=== PATIENT | male | born 1945 | race Two or more races ===

== ENCOUNTER 2016-11-16 16:15 | Emergency (ER) | payer MEDICARE, OTHER ==
[~2016-11-16] VITALS: Ht 157.5 cm; Wt 72.6 kg
[~2016-11-16 16:15] MED LIST: AMOXICILLIN125 MG ORAL; ATENOLOL-CHLOR1 EAC2 ORAL; ATENOLOL25 MG ORAL; Aspirin ORAL; CALCIUM 500+VI1 EACH PO; CELEXA20 MG PO; CLOTRIMAZOLE-BE15 GM TP; COREG3.125 MG ORAL; DAKLINZA60 MG PO; DIPHENOXYLATE-1 EACH PO; FERROUS SULFAT325 MG ORAL; FLOMAX0.4 MG ORAL; FOLIC ACID1 MG ORAL; HEPARIN SO5000 UNIT2 SUBQ; IBUPROFEN200 MG ORAL; KLONOPIN0.5 MG ORAL; MYLANTA30 M1 PO; NORCO 5-325 TA1 EACH ORAL; NORCO 5-325 TA1 EACH PO; OMEPRAZOLE40 M1 ORAL; ONDANSETRON4 MG/2 M2 ORAL; POTASSIUM99 M3 PO; PROTONIX40 MG ORAL; ROBITUSSIN DM5 ML PO; SOVALDI400 MG PO; TENORMIN25 MG ORAL; THIAMINE HCL100 MG ORAL; TRAZODONE HCL150 MG ORAL; TRAZODONE HCL50 MG ORAL; TYLENOL325 MG ORAL; VITAMIN B COMP1 EAC2 ORAL; ZOFRAN4 M1 ORAL; ZOLPIDEM TARTRAT5 MG ORAL; [UNRECOGNIZED DRUG - OTHER]; diuretic PO
[2016-11-16 16:28] VITALS: BP 115/81
[2016-11-16] MEDS ORDERED: Lidocaine 1% 10mg/ml/Epi 0.005mg/ml 30ml vial INJ ONE (16:45)
--- NOTE | 2016-11-16 17:28 | Emergency Room Report ---
History of Present Illness General Chief Complaint: Skin Rash/Abscess Present Illness HPI 71-year-old male presents emergency department complaining of pain, swelling and erythema to the left buttocks x5 days. Patient denies nausea, vomiting, fevers or chills patient states he has been attempting hot sitz baths without relief. he reports he history of an abscessed on the outer right thigh approximately one year ago, which required incision and drainage, patient believes that this is the case today. Denies CP, Palpitations, LOC, AMS, dizziness, Changes in Vision, Sensation, paresthesias, or a sudden severe headache. (Daisy Munguia) Allergies: Coded Allergies: No Known Allergies (Unverified , 02/16/13) Patient History Past Medical History: see triage record Past Surgical History: none Pertinent Family History: none Reviewed Nursing Documentation: PMH: Agreed, PSxH: Agreed (Daisy Munguia) Nursing Documentation-PMH Hx Cardiac Problems: Yes Hx Hypertension: Yes Hx Pacemaker: No Hx Asthma: No Hx COPD: No Hx Diabetes: Yes Hx Cancer: No Hx Gastrointestinal Problems: Yes Hx Dialysis: No Hx Neurological Problems: No Hx Cerebrovascular Accident: No Hx Transient Ischemic Attacks: No Hx Dementia: No Hx Alzheimer's Disease: No Hx Parkinson's Disease: No Hx Meningitis: No Hx Encephalitis: No Hx Seizures: No Hx Epilepsy: No Hx Multiple Sclerosis: No Hx Cerebral Palsy: No Hx Amyotrophic Lat Sclerosis: No Hx Guillian-Marenisco Syndrome: No Hx Paralysis: No Hx Peripheral Neuropathy: No Hx Spinal Cord Injury: No Hx Head Trauma: No Hx Traumatic Brain Injury: No Hx Memory Loss: No Hx Concentration Difficulty: No Hx Speech Problem: No Hx Tremors: No Hx Vertigo: No Hx Dizziness: Yes - right hear hearing loss Hx Syncope: Yes - pa Hx Headaches: No Hx Aphasia: No Hx Dysphasia: No Hx Numbness: No Hx Weakness: No Hx Fatigue: No Hx Neurologic Surgery: No Hx Brain Shunt: No (Daisy Munguia PKodiAKodi) Review of Systems All Other Systems: negative except mentioned in HPI (Daisy Munguia PJennifer) Physical Exam Vital Signs Date Time Temp Pulse Resp B/P Pulse Ox O2 Delivery O2 Flow Rate FiO2 11/16/16 16:21 97.3 100 20 109/71 97 Room Air Sp02 EP Interpretation: reviewed, normal General Appearance: no apparent distress, alert, GCS 15, non-toxic Head: normocephalic, atraumatic Eyes: bilateral eye PERRL, bilateral eye normal inspection ENT: hearing grossly normal, normal pharynx, no angioedema, normal voice Neck: full range of motion, supple/symm/no masses Respiratory: chest non-tender, lungs clear, normal breath sounds, speaking full sentences Cardiovascular #1: regular rate, rhythm, no edema Gastrointestinal: normal bowel sounds, non tender, soft, no guarding, no rebound Rectal: deferred Genitourinary: normal inspection, no CVA tenderness Musculoskeletal: back normal, gait/station normal, normal range of motion, non- tender Neurologic: alert, oriented x3, responsive, motor strength/tone normal, sensory intact, speech normal Psychiatric: judgement/insight normal, memory normal, mood/affect normal, no suicidal/homicidal ideation Skin: normal color, no rash, warm/dry, well hydrated, other - swelling , erythema, and induration to left lower buttock , increased temperature to palpation. Lymphatic: no adenopathy (Daisy Munguia) Procedures Incision and Drainage Incision and Drainage : Consent: Verbal Site: left lower buttock Blade Size: 11 I & D Procedure: betadine prep Wound Location: lower extremity - left buttock Wound's Depth, Shape: into muscle Wound Length (cm): 2 Wound Explored: contaminated - purulent d/c expressed Irrigated w/ Saline (ccs): 60 Anesthesia: Lidocaine w/ Epi Volume Anesthetic (ccs): 2 Splint Applied?: No Sling Applied?: No Patient Tolerated: Well Complications: None (Daisy Munguia) Medical Decision Making PA Attestation Dr. christie is my supervising Physician whom patient management has been discussed with. (Daisy MunguiaAKodi) Medicare Attestation The history of Caleb Chappell has been reviewed and management options for him have been examined and discussed by Rashad June. I have personally examined and interviewed the patient. (RASHAD JUNE M.D.) Diagnostic Impression: Primary Impression: Abscess ER Course Pt. presents to the ED c/o pain, swelling, and erythema of left lower buttock Ddx considered but are not limited to cellulitis, abscess, cystic acne, necrotizing fasciitis, insect bite. Vital signs: are WNL, pt. is afebrile H&PE are most consistent with ORDERS: none required at this time, the diagnosis is clinical ED INTERVENTIONS: -I & D. - wound dressing applied. DISCHARGE: At this time pt. is stable for d/c to home. Will provide printed patient care instructions, and any necessary prescriptions. Care plan and follow up instructions have been discussed with the patient prior to discharge. (Daisy Munguia) Last Vital Signs Date Time Temp Pulse Resp B/P Pulse Ox O2 Delivery O2 Flow Rate FiO2 11/16/16 16:28 97.5 89 20 115/81 95 Room Air (Daisy Munguia) Disposition: HOME, SELF-CARE Condition: Stable Scripts Ibuprofen* (MOTRIN*) 600 Mg Tablet 600 MG ORAL THREE TIMES A DAY, #30 TAB 0 Refills Prov: Daisy Munguia 11/16/16 Doxycycline Monohydrate* (DOXYCYCLINE MONOHYDRATE*) 100 Mg Capsule 100 MG ORAL TWICE A DAY, #14 CAP 0 Refills Prov: Daisy Munguia 11/16/16 Referrals: Arturo Blank MD (PCP) Patient Instructions: Abscess Additional Instructions: Take medications as directed. Follow up with PCP in 3-5 days Return sooner to ED if new symptoms occur, or current symptoms become worse. Daisy Munguia Nov 16, 2016 17:28 RASHAD JUNE M.D. Nov 20, 2016 05:27
[2016-11-16] MEDS ORDERED: DOXYCYCLINE MO100 MG ORAL (17:30)
[2016-11-16] MEDS ORDERED: Bacitracin Oint UD TOPIC ONE (17:30)
[2016-11-16] MEDS ORDERED: IBUPROFEN600 MG ORAL (17:31)
[2016-11-16 17:50] VITALS: BP 115/81
== END 2016-11-16 17:50 | disposition home or self-care (01) ==
LOC: EMR 16:50
DX: L02.212 Cutaneous abscess of back [any part, except buttock and flank] (principal); E11.9 Type 2 diabetes mellitus without complications; I10 Essential (primary) hypertension; H91.91 Unspecified hearing loss, right ear
CPT/HCPCS: 10060

== ENCOUNTER 2019-03-05 23:26 | Inpatient (IN) | payer MEDICARE, OTHER ==
[~2019-03-05] VITALS: Ht 172.7 cm; Wt 76.2 kg
[~2019-03-05 23:26] MED LIST changes: +DOXYCYCLINE MO100 MG ORAL; +IBUPROFEN600 MG ORAL
--- NOTE | 2019-03-05 23:45 | Emergency Room Report ---
History of Present Illness General Chief Complaint: Generalized Weakness Source: Patient Present Illness HPI Is a 73-year-old male with a history of alcohol abuse and been sober for 5 years. He also has a history of hep C. He also has a history of severe anxiety for which she takes Xanax. He presents with chief complaint of abdominal pain, chest pain, weakness. Ongoing for the last week and half. He saw Dr. Blank on Monday and had blood work done. He said that symptoms continue so he came here for evaluation. He has follow-up in the next few days but he couldn't wait. Denies any nausea vomiting. Has generalized weakness. Pain is diffuse in nature. Nothing made it better. Nothing made it worse. Allergies: Coded Allergies: No Known Allergies (Unverified , 02/16/13) Patient History Past Medical History: see triage record, old chart reviewed, psych hx Past Surgical History: none Pertinent Family History: none Social History: Reports: alcohol use - history of Immunizations: other Reviewed Nursing Documentation: PMH: Agreed; PSxH: Agreed Nursing Documentation-PMH Past Medical History: No History, Except For Hx Cardiac Problems: Yes Hx Hypertension: Yes Hx Pacemaker: No Hx Asthma: No Hx COPD: No Hx Diabetes: Yes Hx Cancer: No Hx Gastrointestinal Problems: Yes Hx Dialysis: No Hx Neurological Problems: No Hx Cerebrovascular Accident: No Hx Transient Ischemic Attacks: No Hx Dementia: No Hx Alzheimer's Disease: No Hx Parkinson's Disease: No Hx Meningitis: No Hx Encephalitis: No Hx Seizures: No Hx Epilepsy: No Hx Multiple Sclerosis: No Hx Cerebral Palsy: No Hx Amyotrophic Lat Sclerosis: No Hx Guillian-Pepperell Syndrome: No Hx Paralysis: No Hx Peripheral Neuropathy: No Hx Spinal Cord Injury: No Hx Head Trauma: No Hx Traumatic Brain Injury: No Hx Memory Loss: No Hx Concentration Difficulty: No Hx Speech Problem: No Hx Tremors: No Hx Vertigo: No Hx Dizziness: Yes - right hear hearing loss Hx Syncope: Yes - pa Hx Headaches: No Hx Aphasia: No Hx Dysphasia: No Hx Numbness: No Hx Weakness: No Hx Fatigue: No Hx Neurologic Surgery: No Hx Brain Shunt: No Review of Systems Constitutional: Reports: weakness Eye: Denies: eye pain, blurred vision ENT: Denies: ear pain, nose congestion, throat swelling Respiratory: Denies: cough, shortness of breath Cardiovascular: Reports: chest pain; Denies: palpitations Gastrointestinal: Reports: abdominal pain; Denies: diarrhea, nausea, vomiting Musculoskeletal: Denies: back pain, joint pain Skin: Denies: rash Neurological: Denies: headache, numbness Endocrine: Denies: increased thirst, increased urine Hematologic/Lymphatic: Denies: easy bruising All Other Systems: negative except mentioned in HPI Physical Exam Vital Signs Date Time Temp Pulse Resp B/P (MAP) Pulse Ox O2 Delivery O2 Flow Rate FiO2 03/05/19 23:31 98.4 87 20 150/88 94 Room Air vitals with high blood pressure Sp02 EP Interpretation: reviewed, normal General Appearance: well appearing, no apparent distress, alert Head: normocephalic, atraumatic Eyes: bilateral eye PERRL, bilateral eye EOMI ENT: hearing grossly normal, normal pharynx Neck: full range of motion, supple, no meningismus Respiratory: chest non-tender, accessory muscle use, rales - right lung Cardiovascular #1: regular rate, rhythm, no murmur Gastrointestinal: normal bowel sounds, non tender, no mass, no organomegaly, no bruit, non-distended Musculoskeletal: back normal, gait/station normal, normal range of motion Psychiatric: mood/affect normal Skin: warm/dry Medical Decision Making Diagnostic Impression: Primary Impression: Pleural effusion Additional Impressions: Chest pain Qualified Codes: R07.9 - Chest pain, unspecified Abdominal pain Qualified Codes: R10.84 - Generalized abdominal pain ER Course patient presents with abdominal pain and chest pain and weakness for about a week. I noticed that he's a little dyspneic. CT abdomen showed a large right pleural effusion. This is confirmed with a chest x-ray. EKG is unremarkable. Troponin negative. Unknown reason why he has a large effusion. Patient will be admitted for further workup. I discussed the case with Dr. Blank who will admit. Lab Results Impression labs unremarkable EKG Diagnostic Results Rate: normal Rhythm: NSR ST Segments: no acute changes Rhythm Strip Diag. Results EP Interpretation: yes Rate: 72 Rhythm: NSR, no PVC's, no ectopy Chest X-Ray Diagnostic Results Chest X-Ray Diagnostic Results : Chest X-Ray Ordered: Yes # of Views/Limited/Complete: 1 View Indication: Shortness of Breath EP Interpretation: Yes Interpretation: no consolidation, no pneumothorax, other - large right pleural effussion Impression: Other - right pleural effusion Electronically Signed by: Rosendo Zamora MD CT/MRI/US Diagnostic Results CT/MRI/US Diagnostic Results : Imaging Test Ordered: CT abdomen and pelvis Impression read by radiologist. Severe right pleural . Abdominal findings unremarkable. Large hiatal hernia. Last Vital Signs Date Time Temp Pulse Resp B/P (MAP) Pulse Ox O2 Delivery O2 Flow Rate FiO2 03/05/19 23:31 98.4 87 20 150/88 94 Room Air Status: improved Disposition: ADMITTED INPATIENT Condition: Serious Rosendo Zamora MD Mar 05, 2019 23:45
[2019-03-06] VITALS (7 sets, daily range): BP systolic 107–142; BP diastolic 56–79
[2019-03-06 00:40] LABS: BASOPHILS % (AUTO) 0.5 % (0.0-2.0); EOSINOPHILS % (AUTO) 2.2 % (0.0-3.0); HEMATOCRIT 39.8 % (42.0-52.0); HEMOGLOBIN 12.9 G/DL (14.2-18.0); LYMPHOCYTES % (AUTO) 6.8 % (20.0-45.0); MEAN CORPUSCULAR VOLUME 74 FL (80-99); MONOCYTES % (AUTO) 8.9 % (1.0-10.0); NEUTROPHILS % (AUTO) 81.5 % (45.0-75.0); PLATELET COUNT 241 K/UL (150-450); RED BLOOD COUNT 5.36 M/UL (4.70-6.10); RED CELL DISTRIBUTION WIDTH 14.8 % (11.6-14.8); WHITE BLOOD COUNT 9.4 K/UL (4.8-10.8)
[2019-03-06 00:50] LABS: ANION GAP 13 mmol/L (5-15); BLOOD UREA NITROGEN 13 mg/dL (7-18); CALCIUM 10.1 MG/DL (8.5-10.1); CARBON DIOXIDE 27 MMOL/L (21-32); CHLORIDE 94 MMOL/L (98-107); CREATININE 0.7 MG/DL (0.55-1.30); POTASSIUM 3.4 MMOL/L (3.5-5.1); SODIUM 134 MMOL/L (136-145)
[2019-03-06 00:54] LABS: ALANINE AMINOTRANSFERASE 27 U/L (12-78); ALBUMIN/GLOBULIN RATIO 0.6 (1.0-2.7); ALKALINE PHOSPHATASE 108 U/L (46-116); ASPARTATE AMINO TRANSFERASE 101 U/L (15-37); BILIRUBIN,TOTAL 0.6 MG/DL (0.2-1.0)
[2019-03-06 01:21] LABS: APPEARANCE,URINE CLEAR; BILIRUBIN, URINE 1+ (NEGATIVE); GLUCOSE, URINE (UA) NEGATIVE (NEGATIVE); KETONES,URINE 3+ (NEGATIVE); LEUKOCYTE ESTERASE ,URINE 1+ (NEGATIVE); NITRITE,URINE NEGATIVE (NEGATIVE); PH,URINE 6 (4.5-8.0); PROTEIN,URINE 1+ (NEGATIVE); UROBILINOGEN,URINE 4 MG/DL (0.0-1.0)
[2019-03-06] MEDS ORDERED: Ketorolac 30mg Inj IV ONE (01:30)
[2019-03-06] MEDS ORDERED: Morphine Sulfate 4mg/ml Inj (IV USE ONLY) IVP PRN (01:30)
[2019-03-06 01:32] LABS: COLOR,URINE YELLOW
[2019-03-06 08:39] LABS: INR 1.1 (0.9-1.1)
[2019-03-06] MEDS: Atenolol 25mg tab ORAL SCH (08:48)
[2019-03-06] MEDS: Heparin 5000 units/ml inj SUBQ SCH ×2 (08:49→21:04)
[2019-03-06] MEDS: ALPRAZolam 0.5mg tab ORAL PRN (09:04)
--- NOTE | 2019-03-06 10:49 | Diagnostic Imaging Report ---
Indication: Abdominal pain Technique: Spiral acquisitions obtained through the abdomen and pelvis. No oral contrast utilized, per emergency room physician request No IV contrast utilized, per referring physician request.. Multiplanar reconstructions were generated. Total dose length product 698.87 mGycm. CTDIvol(s) 12.33 mGy. Dose reduction achieved using automated exposure control Comparison: 01/18/2014 Findings: The appendix is not definitely visualized, but no findings to suggest acute appendicitis are evident. No evidence of diverticulosis or diverticulitis. No small bowel distention. No free or loculated intraperitoneal gas or fluid is evident. Again demonstrated is a large hiatal hernia. The duodenum is unremarkable. Lack of IV contrast on this assessment of solid organs. The gallbladder is surgically absent. Subcentimeter low-attenuation lesions are seen within the liver. Previously demonstrated hepatic fatty changes no longer evident. The pancreas is unremarkable. The spleen demonstrates an eggshell calcification, also previously demonstrated. The adrenals are unremarkable. The kidneys demonstrate bilateral cysts. The left kidney again demonstrates a 3 mm lower pole calyceal calculus. No retroperitoneal or mesenteric mass or adenopathy. No hydronephrosis or hydroureter. The prostate is prominent. The bladder is unremarkable. No pelvic mass or adenopathy. There is a tiny left inguinal hernia which contains only fat. There is a large right pleural effusion demonstrated. There is compressive atelectasis of entire right lower lobe and probably the entire right middle lobe. The left lung base is clear. The heart size is normal. The bones demonstrate degenerative spondylosis changes. There is anterior offset of L4 on L5 without evidence of pars defect. This has progressed since the previous study. Impression: No acute abdominal or pelvic abnormality Large hiatal hernia Large right pleural effusion. Compressive atelectasis of the right lower and middle lobes. Surgically absent gallbladder Nonobstructive left lower pole intrarenal calculus, also previously described Anterior offset of L4 on L5, without evidence of pars defect. Progressive since prior exam of 01/18/2014 Subcentimeter low-attenuation liver lesions, too small to characterize, most likely 9 simple cysts or bile hamartomas. No further follow-up necessary Incidental findings as noted, including stable splenic eggshell calcification-presumed postinflammatory, bilateral renal cysts, prominent prostate, fat-containing left inguinal hernia This agrees with the preliminary interpretation provided overnight by [facility] [employer] teleradiology service. The CT scanner at [facility] [place] is accredited by the [employer] and the scans are performed using protocols designed to limit radiation exposure to as low as reasonably achievable to attain images of sufficient resolution adequate for diagnostic evaluation.
--- NOTE | 2019-03-06 12:03 | Consultation ---
History of Present Illness General Date patient seen: Mar 06, 2019 Chief Complaint: Generalized Weakness Present Illness HPI 73 year old male with hx of ETOH abuse, HTN, DM, Hep C, presented to ER with abdominal symptoms. His CT of abdomen showed large right sided pleural effusion. Pt is admitted for further work up. Allergies: Coded Allergies: No Known Allergies (Unverified , 02/16/13) Medication History Scheduled Atenolol* (Tenormin*), 25 MG ORAL DAILY, (Reported) Citalopram Hydrobromide* (Celexa*), 30 MG PO DAILY, (Reported) Clonazepam* (Klonopin*), 0.5 MG ORAL BID, (Reported) Clotrimazole/Betamethasone Dip (Clotrimazole-Betamethasone Crm), 15 GM TP BID, ( Reported) Daclatasvir Dihydrochloride (Daklinza), 60 MG PO DAILY, (Reported) Diphenoxylate Hcl/Atropine (Diphenoxylate-Atropine Tablet), 1 EACH PO Q12HR, ( Reported) Doxycycline Monohydrate* (Doxycycline Monohydrate*), 100 MG ORAL TWICE A DAY Ferrous Sulfate* (Ferrous Sulfate*), 325 MG ORAL DAILY, (Reported) Folic Acid* (Folic Acid*), 1 MG ORAL DAILY, (Reported) Ibuprofen* (Motrin*), 600 MG ORAL THREE TIMES A DAY Omeprazole (Omeprazole), 40 MG ORAL DAILY, (Reported) Potassium Gluconate (Potassium), 20 MG PO BID, (Reported) Sofosbuvir (Sovaldi), 400 MG PO DAILY, (Reported) Tamsulosin HCl (Flomax), 0.4 MG ORAL QHS, (Reported) Vitamin B Complex (Vitamin B Complex), 1 CAP ORAL DAILY, (Reported) [diuretic], MG PO DAILY, (Reported) Scheduled PRN Zolpidem Tartrate* (Zolpidem Tartrate*), 5 MG ORAL BEDTIME PRN for Insomnia, ( Reported) Patient History Healthcare decision maker Resuscitation status Full Code Advanced Directive on File Past Medical/Surgical History Past Medical/Surgical History: (1) Hepatitis C (2) S/P cholecystectomy (3) Seizure disorder (4) Hypertension (5) Coronary artery disease (6) Alcohol abuse (7) Anxiety Review of Systems All Other Systems: negative except mentioned in HPI Physical Exam General Appearance: WD/WN Lines, tubes and drains: peripheral HEENT: normocephalic, atraumatic Neck: non-tender, normal alignment Respiratory/Chest: chest wall non-tender, lungs clear, normal breath sounds Breasts: no masses Cardiovascular/Chest: normal peripheral pulses Abdomen: normal bowel sounds Genitourinary/Rectal: normal genital exam Last 24 Hour Vital Signs Date Time Temp Pulse Resp B/P (MAP) Pulse Ox O2 Delivery O2 Flow Rate FiO2 03/06/19 09:00 Nasal Cannula 2.0 Nasal Cannula 2.0 03/06/19 08:48 70 110/63 03/06/19 08:00 2.0 03/06/19 08:00 69 03/06/19 08:00 97.3 69 20 110/63 (79) 90 03/06/19 04:00 69 03/06/19 04:00 2.0 03/06/19 04:00 98.9 72 20 121/56 (77) 93 03/06/19 02:59 Room Air Room Air 03/06/19 02:30 99.1 75 130/79 (96) 03/06/19 02:00 98.4 74 25 142/73 96 Room Air 03/06/19 00:40 98.4 74 25 142/73 96 Room Air 03/05/19 23:31 98.4 87 20 150/88 94 Room Air 03/05/19 23:31 87 20 Room Air Intake and Output 03/05/19 03/06/19 19:00 07:00 Intake Total 1000 ml Balance 1000 ml Intake Oral 0 ml IV Total 1000 ml # Voids 1 Laboratory Tests Test 03/06/19 00:15 03/06/19 00:35 03/06/19 07:17 03/06/19 08:15 White Blood Count 9.4 K/UL (4.8-10.8) Red Blood Count 5.36 M/UL (4.70-6.10) Hemoglobin 12.9 G/DL (14.2-18.0) L Hematocrit 39.8 % (42.0-52.0) L Mean Corpuscular Volume 74 FL (80-99) L Mean Corpuscular Hemoglobin 24.1 PG (27.0-31.0) L Mean Corpuscular Hemoglobin Concent 32.5 G/DL (32.0-36.0) Red Cell Distribution Width 14.8 % (11.6-14.8) Platelet Count 241 K/UL (150-450) Mean Platelet Volume 6.9 FL (6.5-10.1) Neutrophils (%) (Auto) 81.5 % (45.0-75.0) H Lymphocytes (%) (Auto) 6.8 % (20.0-45.0) L Monocytes (%) (Auto) 8.9 % (1.0-10.0) Eosinophils (%) (Auto) 2.2 % (0.0-3.0) Basophils (%) (Auto) 0.5 % (0.0-2.0) Sodium Level 134 MMOL/L (136-145) L Potassium Level 3.4 MMOL/L (3.5-5.1) L Chloride Level 94 MMOL/L (98-107) L Carbon Dioxide Level 27 MMOL/L (21-32) Anion Gap 13 mmol/L (5-15) Blood Urea Nitrogen 13 mg/dL (7-18) Creatinine 0.7 MG/DL (0.55-1.30) Estimat Glomerular Filtration Rate mL/min (>60) Glucose Level 109 MG/DL (74-106) H Calcium Level 10.1 MG/DL (8.5-10.1) Total Bilirubin 0.6 MG/DL (0.2-1.0) Aspartate Amino Transf (AST/SGOT) 101 U/L (15-37) H Alanine Aminotransferase (ALT/SGPT) 27 U/L (12-78) Alkaline Phosphatase 108 U/L (46-116) Troponin I 0.000 ng/mL (0.000-0.056) 0.000 ng/mL (0.000-0.056) Total Protein 7.8 G/DL (6.4-8.2) Albumin 3.0 G/DL (3.4-5.0) L Globulin 4.8 g/dL Albumin/Globulin Ratio 0.6 (1.0-2.7) L Lipase 116 U/L (73-393) Serum Alcohol < 3 mg/dL Urine Color Yellow Urine Appearance Clear Urine pH 6 (4.5-8.0) Urine Specific [place] 1.025 (1.005-1.035) Urine Protein 1+ (NEGATIVE) H Urine Glucose (UA) Negative (NEGATIVE) Urine Ketones 3+ (NEGATIVE) H Urine Blood 2+ (NEGATIVE) H Urine Nitrite Negative (NEGATIVE) Urine Bilirubin 1+ (NEGATIVE) H Urine Ictotest Negative (NEGATIVE) Urine Urobilinogen 4 MG/DL (0.0-1.0) H Urine Leukocyte Esterase 1+ (NEGATIVE) H Urine RBC 2-4 /HPF (0 - 0) H Urine WBC 0-2 /HPF (0 - 0) Urine Squamous Epithelial Cells Few /LPF (NONE/OCC) Urine Bacteria Few /HPF (NONE) Urine Mucus Moderate /LPF (NONE/OCC) H Prothrombin Time 12.0 SEC (9.30-11.50) H Prothromb Time International Ratio 1.1 (0.9-1.1) Activated Partial Thromboplast Time 26 SEC (23-33) Height (Feet): 5 Height (Inches): 8.00 Weight (Pounds): 168 Medications Current Medications Medications (Trade) Dose Ordered Sig/Richard Route PRN Reason Start Time Stop Time Status Last Admin Dose Admin Alprazolam (Xanax) 0.5 mg Q6H PRN ORAL For Anxiety 03/06/19 07:00 03/13/19 06:59 03/06/19 09:04 Atenolol (Tenormin) 25 mg DAILY ORAL 03/06/19 09:00 04/05/19 08:59 03/06/19 08:48 Ferrous Sulfate (Feosol) 325 mg DAILY ORAL 03/06/19 09:00 04/05/19 08:59 03/06/19 08:49 Heparin Sodium (Porcine) (Heparin 5000 units/ml) 5,000 units EVERY 12 HOURS SUBQ 03/06/19 09:00 04/05/19 08:59 Ibuprofen (Motrin) 600 mg Q6H PRN ORAL For Pain 03/06/19 07:00 04/05/19 06:59 Morphine Sulfate (Morphine Sulfate) 4 mg PRN PRN IVP Moderate Pain (Pain Scale 4-6) 03/06/19 01:30 Ondansetron HCl (Zofran ODT) 4 mg Q6H PRN ORAL Nausea & Vomiting 03/06/19 07:00 04/05/19 06:59 Pantoprazole (Protonix) 40 mg DAILY ORAL 03/06/19 09:00 04/05/19 08:59 03/06/19 08:47 Tamsulosin HCl (Flomax) 0.4 mg BEDTIME ORAL 03/06/19 21:00 04/05/19 20:59 Zolpidem Tartrate (Ambien) 5 mg HSPRN PRN ORAL Insomnia 03/06/19 07:00 03/13/19 06:59 Assessment/Plan Problem List: (1) Pleural effusion ICD Codes: J90 - Pleural effusion, not elsewhere classified SNOMED: 91581621 (2) Hepatitis C ICD Codes: B19.20 - Hepatitis C SNOMED: 81760542 (3) Hypertension ICD Codes: I10 - Hypertension SNOMED: 23492919 (4) Coronary artery disease ICD Codes: I25.10 - Coronary artery disease SNOMED: 92842438 (5) Anxiety ICD Codes: F41.9 - Anxiety disorder, unspecified; F48.9 - Nonpsychotic mental disorder, unspecified SNOMED: 64463005 (6) S/P cholecystectomy ICD Codes: Z90.49 - S/P cholecystectomy SNOMED: 818508793 Treatment Plan: thoracentesis PPD skin testing tumor markers cytology of pleural fluid monitor BP Kiran Zhu MD Mar 06, 2019 12:03
--- NOTE | 2019-03-06 12:10 | Pre-Procedure Note/Attestation ---
Pre-Procedure Note/Attestation Complete Prior to Procedure Planned Procedure: right Procedure Narrative: thoracentesis Indications for Procedure Pre-Operative Diagnosis: R pleural effusion Attestation I attest that I discussed the nature of the procedure; its benefits; risks and complications; and alternatives (and the risks and benefits of such alternatives ), prior to the procedure, with the patient (or the patient's legal logistics service representative). I attest that, if there was a reasonable possibility of needing a blood transfusion, the patient (or the patient's legal logistics service representative) was given the [facility] standardized written summary, pursuant to the [place] Blood Safety Act ([place] Health and Safety Code # 1645, as amended). I attest that I re-evaluated the patient just prior to the surgery and that there has been no change in the patient's H&P, except as documented below: Franklin Shields MD Mar 06, 2019 12:10
--- NOTE | 2019-03-06 12:38 | Brief Operative Note ---
Immediate Post Operative Note Operative Note Pre-op Diagnosis: R pleural effusion Procedure: R thoracentesis Post-op Diagnosis: same Surgeon: Paula De Jesus Anesthesia: local Specimen: yes - bloody fluid sent to lab Complications: none Condition: stable Fluids: none Estimated Blood Loss: none Implant(s) used?: No Franklin De Jesus MD Mar 06, 2019 12:38
--- NOTE | 2019-03-06 12:53 | Diagnostic Imaging Report ---
Indications: Pleural effusion Technique: Ultrasound used to localize optimal puncture site. Sterile prepping and draping chest. Local anesthesia with 1% lidocaine. Under real-time ultrasound guidance, puncture pleural space using thoracentesis needle. Stylet removed. Catheter placed to vacuum bottle suction. Total 1950 milliliters of grossly bloody fluid aspirated. Aspiration halted at that point because patient started coughing heavily. Patient tolerated procedure well, without immediate complication. Specimen was sent to the lab. Findings: Followup sonography demonstrates some residual pleural fluid Impression: Successful ultrasound-guided thoracentesis, yielding 1950 milliliters of mostly bloody fluid
--- NOTE | 2019-03-06 12:55 | Diagnostic Imaging Report ---
Indication: Status post thoracentesis, shortness breath, chest pain, coughing Technique: One view of the chest Comparison: 12 hours earlier Findings: Interim improvement in previously demonstrated large right pleural effusion. There is still some residual pleural fluid, and there is some atelectasis at the right lung base. Less optimal inspiration currently, with atelectatic changes seen at the left lung base. No pneumothorax Impression: Decreased right pleural fluid, post thoracentesis. No radiographically evident complication
--- NOTE | 2019-03-06 16:05 | Diagnostic Imaging Report ---
Indication: Shortness of breath Technique: One view of the chest Comparison: 06/19/2015 Findings: Interim development large right pleural effusion. There is suggestion of some retrocardiac consolidation or atelectasis. The heart is enlarged. The left pleural spaces grossly clear. Impression: Large right pleural effusion Cardiomegaly Possible retrocardiac consolidation
[2019-03-06] MEDS: Tamsulosin 0.4mg cap ORAL SCH (20:53)
[2019-03-06] MEDS: Zolpidem 5mg tab ORAL PRN (20:54)
--- NOTE | 2019-03-06 22:30 | History and Physical Report ---
DATE OF ADMISSION: 03/06/2019 CHIEF COMPLAINT: The patient is a 73-year-old male, who presents with chief complaint of abdominal pain and chest pain. HISTORY OF PRESENT ILLNESS: The patient states began approximately a week and a half ago. The patient saw Dr. Blank on 03/01/2019. The patient had labs drawn. The patient states he has been experiencing generalized abdominal pain. The patient also has chest pain. The patient also has generalized weakness. The patient presented to [facility]. The patient is admitted for abdominal pain and chest pain. REVIEW OF SYSTEMS: CONSTITUTIONAL: The patient denies weight loss or weight gain. The patient denies fevers or chills. HEENT: The patient denies ear or throat pain. The patient denies headache. CARDIOVASCULAR: The patient denies palpitations. The patient complains of chest pain as above. CHEST: The patient denies wheeze or shortness of breath. ABDOMEN: The patient complains of generalized abdominal pain. The patient denies nausea, vomiting, diarrhea, or constipation. GENITOURINARY: The patient denies dysuria or increased frequency of urination. NEUROMUSCULAR: The patient denies seizures. The patient complains of generalized weakness as above. PAST MEDICAL HISTORY: Significant for: 1. Hypertension. 2. Hepatitis C. 3. Temporomandibular joint syndrome. 4. History of alcohol dependence, in remission. PAST SURGICAL HISTORY: Significant for laparoscopic cholecystectomy in 2013. CURRENT MEDICATIONS: 1. Flomax 0.4 mg p.o. daily. 2. Atenolol 25 mg p.o. daily. 3. Protonix 40 mg p.o. daily. 4. Iron sulfate 325 mg p.o. daily. 5. Xanax 0.5 mg p.o. four times daily p.r.n. 6. Ambien 5 mg p.o. nightly. ALLERGIES: No known drug allergies. SOCIAL HISTORY: The patient is single. 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 The patient denies tobacco use, having quit in 1981. The patient denies alcohol use, having quit in 2013. PHYSICAL EXAMINATION: VITAL SIGNS: Temperature 98.9, respirations 20, pulse 72, and blood pressure 129/56. GENERAL: The patient is a well-developed and well-nourished male, in no apparent distress. HEENT: Eyes, pupils are equal and responsive to light and accommodation. Extraocular movements are intact. NECK: Supple without lymphadenopathy. CHEST: Lungs are clear to auscultation bilaterally without wheezes or rales. CARDIOVASCULAR: Regular rate. S1 and S2 normal without murmurs, rubs, or gallops. ABDOMEN: Soft, nondistended with decreased bowel sounds. Tenderness to palpation in all four quadrants. No rebound or guarding noted. EXTREMITIES: Negative for clubbing, cyanosis, or edema. RECTAL/GENITAL: Refused. NEUROLOGIC: Cranial nerves II through XII are grossly intact without focal deficits. Motor strength is 5/5 bilaterally. Deep tendon reflexes are 2+ plantar. LABORATORY STUDIES: WBC 9.4, hemoglobin 12.9, hematocrit 39.8, and platelets 231,000. Sodium 134, potassium 3.4, chloride 94, CO2 27, BUN 13, and creatinine 0.7. Glucose 109. Troponin 0.0. AST elevated at 101. Urine toxicology showed serum alcohol less than 3. Pro time 12.0, INR 1.1, PTT 26. Urinalysis showed 3+ ketones, 2+ blood, 1+ bilirubin, 1+ leukocyte esterase with 2 to [address] scan of the abdomen was reported as no acute abdominal or pelvic abnormality. ASSESSMENT: This is a 73-year-old male with: 1. Abdominal pain. 2. Chest pain. 3. Hypertension. 4. Hepatitis C. 5. History of alcohol dependence, in remission. 6. Temporomandibular joint syndrome. TREATMENT: 1. Abdominal pain. A Gastroenterology consultation has been obtained with Dr. Jose C Astorga. We will follow recommendations of Gastroenterology. 2. Chest pain. Serial troponin levels will be performed. A Cardiology consultation has been obtained with Dr. Dwight Pratt. 3. Hepatitis C. As above a Gastroenterology consultation has been obtained with . 4. Hypertension. Continue atenolol as above. 5. Temporomandibular joint syndrome. 6. History of alcohol dependence, in remission. Raulito Douglass M.D. DR: OLGA LIDIA JOB#: [id number] CC:
[2019-03-07] VITALS: BP 129/71
[2019-03-07] MEDS: ALPRAZolam 0.5mg tab ORAL PRN ×2 (00:52→21:46)
[2019-03-07 04:00] VITALS: BP 121/75
[2019-03-07 07:25] LABS: BASOPHILS % (AUTO) 0.5 % (0.0-2.0); EOSINOPHILS % (AUTO) 3.8 % (0.0-3.0); HEMATOCRIT 37.9 % (42.0-52.0); HEMOGLOBIN 12.4 G/DL (14.2-18.0); LYMPHOCYTES % (AUTO) 9.2 % (20.0-45.0); MEAN CORPUSCULAR VOLUME 75 FL (80-99); MONOCYTES % (AUTO) 10.4 % (1.0-10.0); NEUTROPHILS % (AUTO) 76.1 % (45.0-75.0); PLATELET COUNT 221 K/UL (150-450); RED BLOOD COUNT 5.04 M/UL (4.70-6.10); RED CELL DISTRIBUTION WIDTH 15.6 % (11.6-14.8); WHITE BLOOD COUNT 9.4 K/UL (4.8-10.8)
[2019-03-07 07:27] LABS: ALANINE AMINOTRANSFERASE 24 U/L (12-78); ALBUMIN 2.5 G/DL (3.4-5.0); ALBUMIN/GLOBULIN RATIO 0.6 (1.0-2.7); ALKALINE PHOSPHATASE 96 U/L (46-116); ANION GAP 7 mmol/L (5-15); ASPARTATE AMINO TRANSFERASE 93 U/L (15-37); BILIRUBIN,TOTAL 0.4 MG/DL (0.2-1.0); BLOOD UREA NITROGEN 16 mg/dL (7-18); CARBON DIOXIDE 31 MMOL/L (21-32); CHLORIDE 97 MMOL/L (98-107); CREATININE 0.7 MG/DL (0.55-1.30); PHOSPHORUS 4.2 MG/DL (2.5-4.9); POTASSIUM 3.5 MMOL/L (3.5-5.1); SODIUM 135 MMOL/L (136-145)
[2019-03-07 08:00] VITALS: BP 104/64
[2019-03-07] MEDS: Atenolol 25mg tab ORAL SCH (08:42)
[2019-03-07] MEDS: Heparin 5000 units/ml inj SUBQ SCH ×2 (08:48→20:52)
--- NOTE | 2019-03-07 09:18 | Diagnostic Imaging Report ---
Indication: Shortness of breath Technique: One view of the chest Comparison: 03/06/2019 Findings: Unchanged moderate right pleural effusion. There may be some pleural fluid on the left as well. There is some atelectasis at the left lung base. The heart is enlarged. Findings are unchanged Impression: Unchanged, over one day, findings as above.
[2019-03-07 12:00] VITALS: BP 109/63
--- NOTE | 2019-03-07 12:04 | Pulmonology Progress Note ---
Assessment/Plan Problems: (1) Pleural effusion (2) Hepatitis C (3) Hypertension (4) Coronary artery disease (5) Anxiety (6) S/P cholecystectomy Assessment/Plan almost 2 liters removed pathology pending, will be ready tomorrow, talked to pathologist Ct chest ordered PPD skin testing Subjective ROS Limited/Unobtainable: No Constitutional: Reports: no symptoms HEENT: Repors: no symptoms Respiratory: Reports: no symptoms Allergies: Coded Allergies: No Known Allergies (Unverified , 02/16/13) Objective Last 24 Hour Vital Signs Date Time Temp Pulse Resp B/P (MAP) Pulse Ox O2 Delivery O2 Flow Rate FiO2 03/07/19 09:00 Nasal Cannula 2.0 Nasal Cannula 2.0 03/07/19 08:42 64 104/68 03/07/19 08:00 97.0 68 22 104/64 (77) 96 03/07/19 07:48 66 03/07/19 04:00 98.4 70 16 121/75 (90) 94 03/07/19 04:00 98.4 03/07/19 04:00 67 03/07/19 00:00 100.1 83 18 129/71 (90) 95 03/07/19 00:00 70 03/06/19 21:00 Nasal Cannula 2.0 Nasal Cannula 2.0 03/06/19 20:00 99.1 73 18 110/64 (79) 93 03/06/19 20:00 71 03/06/19 16:00 68 03/06/19 16:00 98.2 65 20 115/57 (76) 94 03/06/19 16:00 2.0 Intake and Output 03/06/19 03/07/19 19:00 07:00 Intake Total 1000 ml Balance 1000 ml Intake Oral 0 ml IV Total 1000 ml # Voids 1 1 # Bowel Movements 2 1 General Appearance: WD/WN HEENT: atraumatic Respiratory/Chest: chest wall non-tender, lungs clear Cardiovascular: normal peripheral pulses, normal rate Abdomen: normal bowel sounds, soft, non tender Genitourinary: normal external genitalia Neurologic/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: 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 II-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 grossly normal Laboratory Tests 03/07/19 05:40: White Blood Count 9.4, Red Blood Count 5.04, Hemoglobin 12.4L, Hematocrit 37.9L , Mean Corpuscular Volume 75L, Mean Corpuscular Hemoglobin 24.6L, Mean Corpuscular Hemoglobin Concent 32.7, Red Cell Distribution Width 15.6H, Platelet Count 221, Mean Platelet Volume 6.5, Neutrophils (%) (Auto) 76.1H, Lymphocytes (%) (Auto) 9.2L, Monocytes (%) (Auto) 10.4H, Eosinophils (%) (Auto) 3.8H, Basophils (%) (Auto) 0.5, Sodium Level 135L, Potassium Level 3.5, Chloride Level 97L, Carbon Dioxide Level 31, Anion Gap 7, Blood Urea Nitrogen 16 , Creatinine 0.7, Estimat Glomerular Filtration Rate , Glucose Level 116H, Calcium Level 10.0, Phosphorus Level 4.2, Magnesium Level 1.2L, Total Bilirubin 0.4, Aspartate Amino Transf (AST/SGOT) 93H, Alanine Aminotransferase (ALT/SGPT) 24, Alkaline Phosphatase 96, Pro-B-Type Natriuretic Peptide 216H, Total Protein 7.0, Albumin 2.5L, Globulin 4.5, Albumin/Globulin Ratio 0.6L Current Medications Medications (Trade) Dose Ordered Sig/Richard Route PRN Reason Start Time Stop Time Status Last Admin Dose Admin Acetaminophen (Tylenol) 650 mg Q6H PRN ORAL Mild Pain,Temp > 100.0 03/07/19 01:30 04/06/19 01:29 03/07/19 01:31 Alprazolam (Xanax) 0.5 mg Q6H PRN ORAL For Anxiety 03/06/19 07:00 03/13/19 06:59 03/07/19 00:52 Atenolol (Tenormin) 25 mg DAILY ORAL 03/06/19 09:00 04/05/19 08:59 03/07/19 08:42 Ferrous Sulfate (Feosol) 325 mg DAILY ORAL 03/06/19 09:00 04/05/19 08:59 03/07/19 08:41 Heparin Sodium (Porcine) (Heparin 5000 units/ml) 5,000 units EVERY 12 HOURS SUBQ 03/06/19 09:00 04/05/19 08:59 03/07/19 08:48 Ibuprofen (Motrin) 600 mg Q6H PRN ORAL For Pain 03/06/19 07:00 04/05/19 06:59 Ondansetron HCl (Zofran ODT) 4 mg Q6H PRN ORAL Nausea & Vomiting 03/06/19 07:00 04/05/19 06:59 Pantoprazole (Protonix) 40 mg DAILY ORAL 03/06/19 09:00 04/05/19 08:59 03/07/19 08:41 Tamsulosin HCl (Flomax) 0.4 mg BEDTIME ORAL 03/06/19 21:00 04/05/19 20:59 03/06/19 20:53 Zolpidem Tartrate (Ambien) 5 mg HSPRN PRN ORAL Insomnia 03/06/19 07:00 03/13/19 06:59 03/06/19 20:54 Kiran Zhu MD Mar 07, 2019 12:04
[2019-03-07] MEDS ORDERED: Isovue-300 100ml vial INJ PRN (12:15)
[2019-03-07] MEDS ORDERED: Vitamin B12 1000mcg/ml Inj IM ONE (13:00)
[2019-03-07] MEDS ORDERED: PPD Tuberculin Skin Test 5TU IDERMAL ONE (14:00)
--- NOTE | 2019-03-07 14:27 | Diagnostic Imaging Report ---
Clinical Indication: Pleural effusion Technique: IV administration nonionic contrast. Spiral acquisition obtained through the chest. Multiplanar reconstructions generated. Total dose length product 776.02 mGycm. CTDIvol(s) 18.33 mGy. Dose reduction achieved using automated exposure control Comparison: none Findings: There is a large right pleural effusion. This results in compressive atelectasis of nearly entire right lower lobe, as well as a portion of the right lower lobe. The pleural fluid is only slightly high in attenuation, despite bloody nature of the fluid observed on recent thoracentesis. There is some thickening of the parietal pleura, particularly in the mid and lower lung. No definite mass seen associated with the atelectatic lung. Occasional reticular opacities are seen in the inferior right lower lobe and in the right middle lobe, probably related to atelectatic changes. A small calcification is seen at the periphery of the atelectatic right lower lobe. A small focal area of groundglass opacity is seen in the periphery of the left upper lobe. There is some compressive atelectatic change and possibly some scarring in the inferomedial left lower lobe. There is a large hiatal hernia. The heart size is upper limits of normal. No pericardial effusion. Prominent but not frankly enlarged mediastinal lymph nodes are noted. The thyroid is unremarkable. No axillary or chest wall mass or adenopathy. The bones are unremarkable. The included upper abdominal anatomy is remarkable for the presence of bilateral renal cysts. Subcentimeter low-attenuation lesions are seen in the liver. Patient is status post cholecystectomy. Splenic eggshell calcification is evident, described on multiple prior abdomen pelvis CTs. Impression: Large right pleural effusion. No definite pleural mass demonstrated. Nonspecific thickening of the right parietal pleura Atelectasis of nearly the entire right lower lobe, portions of the right middle lobe, related to the pleural fluid Nonspecific small focal area of groundglass opacity in the left upper lobe, may reflect areas of focal inflammation or postinflammatory change Small peripheral calcification in the right lower lobe Large hiatal hernia Incidental upper abdominal findings as noted, including subcentimeter low-attenuation liver lesions, eggshell calcification in the spleen, prior cholecystectomy, bilateral renal cysts The CT scanner at [facility] is accredited by the [employer] and the scans are performed using protocols designed to limit radiation exposure to as low as reasonably achievable to attain images of sufficient resolution adequate for diagnostic evaluation.
[2019-03-07 16:00] VITALS: BP 114/66
--- NOTE | 2019-03-07 17:10 | Internal Med Progress Note ---
Subjective Date of Service: Mar 07, 2019 Physician Name Raulito Douglass Attending Physician Arturo Blank MD Current Medications Medications (Trade) Dose Ordered Sig/Richard Route PRN Reason Start Time Stop Time Status Last Admin Dose Admin Acetaminophen (Tylenol) 650 mg Q6H PRN ORAL Mild Pain,Temp > 100.0 03/07/19 01:30 04/06/19 01:29 03/07/19 01:31 Alprazolam (Xanax) 0.5 mg Q6H PRN ORAL For Anxiety 03/06/19 07:00 03/13/19 06:59 03/07/19 00:52 Atenolol (Tenormin) 25 mg DAILY ORAL 03/06/19 09:00 04/05/19 08:59 03/07/19 08:42 Carisoprodol (Soma) 350 mg THREE TIMES A DAY ORAL 03/07/19 13:00 04/06/19 12:59 03/07/19 13:02 Ferrous Sulfate (Feosol) 325 mg DAILY ORAL 03/06/19 09:00 04/05/19 08:59 03/07/19 08:41 Heparin Sodium (Porcine) (Heparin 5000 units/ml) 5,000 units EVERY 12 HOURS SUBQ 03/06/19 09:00 04/05/19 08:59 03/07/19 08:48 Ibuprofen (Motrin) 600 mg Q6H PRN ORAL For Pain 03/06/19 07:00 04/05/19 06:59 Iopamidol (Isovue-300 100ml) 100 ml NOW PRN INJ Radiology Procedure 03/07/19 12:15 03/09/19 12:01 Ondansetron HCl (Zofran ODT) 4 mg Q6H PRN ORAL Nausea & Vomiting 03/06/19 07:00 04/05/19 06:59 Pantoprazole (Protonix) 40 mg DAILY ORAL 03/06/19 09:00 04/05/19 08:59 03/07/19 08:41 Tamsulosin HCl (Flomax) 0.4 mg BEDTIME ORAL 03/06/19 21:00 04/05/19 20:59 03/06/19 20:53 Zolpidem Tartrate (Ambien) 5 mg HSPRN PRN ORAL Insomnia 03/06/19 07:00 03/13/19 06:59 03/06/19 20:54 Allergies: Coded Allergies: No Known Allergies (Unverified , 02/16/13) ROS Limited/Unobtainable: No Constitutional: Reports: no symptoms HEENT: Reports: no symptoms Cardiovascular: Reports: chest pain Respiratory: Reports: no symptoms Gastrointestinal/Abdominal: Reports: no symptoms Genitourinary: Reports: no symptoms Neurologic/Psychiatric: Reports: no symptoms Subjective 73 YO M admitted with chest pain and fatigue. Now right pleural effusion. S/P right thoracentesis 03/06/19. Cover for Int James-Dr Blank Objective Last Vital Signs Date Time Temp Pulse Resp B/P (MAP) Pulse Ox O2 Delivery O2 Flow Rate FiO2 03/07/19 13:32 97.3 03/07/19 12:00 60 20 109/63 (78) 96 03/07/19 09:00 Nasal Cannula 2.0 Nasal Cannula 2.0 Laboratory Tests Test 03/07/19 05:40 White Blood Count 9.4 K/UL (4.8-10.8) Red Blood Count 5.04 M/UL (4.70-6.10) Hemoglobin 12.4 G/DL (14.2-18.0) L Hematocrit 37.9 % (42.0-52.0) L Mean Corpuscular Volume 75 FL (80-99) L Mean Corpuscular Hemoglobin 24.6 PG (27.0-31.0) L Mean Corpuscular Hemoglobin Concent 32.7 G/DL (32.0-36.0) Red Cell Distribution Width 15.6 % (11.6-14.8) H Platelet Count 221 K/UL (150-450) Mean Platelet Volume 6.5 FL (6.5-10.1) Neutrophils (%) (Auto) 76.1 % (45.0-75.0) H Lymphocytes (%) (Auto) 9.2 % (20.0-45.0) L Monocytes (%) (Auto) 10.4 % (1.0-10.0) H Eosinophils (%) (Auto) 3.8 % (0.0-3.0) H Basophils (%) (Auto) 0.5 % (0.0-2.0) Sodium Level 135 MMOL/L (136-145) L Potassium Level 3.5 MMOL/L (3.5-5.1) Chloride Level 97 MMOL/L (98-107) L Carbon Dioxide Level 31 MMOL/L (21-32) Anion Gap 7 mmol/L (5-15) Blood Urea Nitrogen 16 mg/dL (7-18) Creatinine 0.7 MG/DL (0.55-1.30) Estimat Glomerular Filtration Rate mL/min (>60) Glucose Level 116 MG/DL (74-106) H Calcium Level 10.0 MG/DL (8.5-10.1) Phosphorus Level 4.2 MG/DL (2.5-4.9) Magnesium Level 1.2 MG/DL (1.8-2.4) L Total Bilirubin 0.4 MG/DL (0.2-1.0) Aspartate Amino Transf (AST/SGOT) 93 U/L (15-37) H Alanine Aminotransferase (ALT/SGPT) 24 U/L (12-78) Alkaline Phosphatase 96 U/L (46-116) Pro-B-Type Natriuretic Peptide 216 pg/mL (0-125) H Total Protein 7.0 G/DL (6.4-8.2) Albumin 2.5 G/DL (3.4-5.0) L Globulin 4.5 g/dL Albumin/Globulin Ratio 0.6 (1.0-2.7) L Carcinoembryonic Antigen Pending Intake and Output 03/06/19 03/07/19 19:00 07:00 Intake Total 1000 ml Balance 1000 ml Intake Oral 0 ml IV Total 1000 ml # Voids 1 1 # Bowel Movements 2 1 Objective PHYSICAL EXAMINATION: VITAL SIGNS: Temperature 98.9, respirations 20, pulse 72, and blood pressure 129/56. GENERAL: The patient is a well-developed and well-nourished male, in no apparent distress. HEENT: Eyes, pupils are equal and responsive to light and accommodation. Extraocular movements are intact. NECK: Supple without lymphadenopathy. CHEST: Decreased breath sounds in right lung field, otherwise, Lungs are clear to auscultation bilaterally without wheezes or rales. CARDIOVASCULAR: Regular rate. S1 and S2 normal without murmurs, rubs, or gallops. ABDOMEN: Soft, nondistended with decreased bowel sounds. Tenderness to palpation in all four quadrants. No rebound or guarding noted. EXTREMITIES: Negative for clubbing, cyanosis, or edema. RECTAL/GENITAL: Refused. NEUROLOGIC: Cranial nerves II through XII are grossly intact without focal deficits. Motor strength is 5/5 bilaterally. Deep tendon reflexes are 2+ plantar. Assessment/Plan Assessment/Plan ASSESSMENT: This is a 73-year-old male with: 1. Abdominal pain. 2. Chest pain. 3. Hypertension. 4. Hepatitis C. 5. History of alcohol dependence, in remission. 6. Temporomandibular joint syndrome. 7. Right pleural effusion. TREATMENT: 1. Abdominal pain. A Gastroenterology consultation has been obtained with Dr. Jose C Astorga. We will follow recommendations of Gastroenterology. 2. Chest pain. Serial troponin levels will be performed. A Cardiology consultation has been obtained with Dr. Dwight Pratt. 3. Hepatitis C. As above a Gastroenterology consultation has been obtained with Dr. Astorga 4. Hypertension. Continue atenolol as above. 5. Temporomandibular joint syndrome. 6. History of alcohol dependence, in remission. 7. Await thoracentesis and CT chest results. Raulito Douglass MD Mar 07, 2019 17:10
[2019-03-07 20:00] VITALS: BP 118/79
[2019-03-07] MEDS: Zolpidem 5mg tab ORAL PRN (20:40)
[2019-03-07] MEDS: Tamsulosin 0.4mg cap ORAL SCH (20:40)
[2019-03-08] VITALS: BP 112/65
[2019-03-08 04:00] VITALS: BP 116/75
[2019-03-08 07:11] LABS: BASOPHILS % (AUTO) 0.5 % (0.0-2.0); HEMATOCRIT 36.4 % (42.0-52.0); HEMOGLOBIN 11.7 G/DL (14.2-18.0); LYMPHOCYTES % (AUTO) 10.7 % (20.0-45.0); MEAN CORPUSCULAR VOLUME 75 FL (80-99); MONOCYTES % (AUTO) 9.5 % (1.0-10.0); NEUTROPHILS % (AUTO) 76.2 % (45.0-75.0); PLATELET COUNT 204 K/UL (150-450); RED BLOOD COUNT 4.86 M/UL (4.70-6.10); RED CELL DISTRIBUTION WIDTH 15.2 % (11.6-14.8); WHITE BLOOD COUNT 9.8 K/UL (4.8-10.8)
[2019-03-08 07:13] LABS: ANION GAP 9 mmol/L (5-15); BLOOD UREA NITROGEN 13 mg/dL (7-18); CALCIUM 9.7 MG/DL (8.5-10.1); CARBON DIOXIDE 29 MMOL/L (21-32); CHLORIDE 96 MMOL/L (98-107); CREATININE 0.6 MG/DL (0.55-1.30); POTASSIUM 3.3 MMOL/L (3.5-5.1); SODIUM 134 MMOL/L (136-145)
[2019-03-08 08:00] VITALS: BP 116/60
[2019-03-08] MEDS: Atenolol 25mg tab ORAL SCH (09:36)
[2019-03-08] MEDS: Heparin 5000 units/ml inj SUBQ SCH ×2 (09:41→20:55)
[2019-03-08 12:00] VITALS: BP 104/60
--- NOTE | 2019-03-08 14:33 | Cardiology Report ---
APPROVED REPORT EXAM: Two-dimensional and M-mode echocardiogram with Doppler and color Doppler. INDICATION C.A.D M-Mode DIMENSIONS IVSd1.1 (0.7-1.1cm)Left Atrium (MM)3.2 (1.6-4.0cm) LVDd4.6 (3.5-5.6cm)Aortic Root2.7 (2.0-3.7cm) PWd1.2 (0.7-1.1cm)Aortic Cusp Exc.1.5 (1.5-2.0cm) IVSs1.5 cm LVDs2.8 (2.5-4.0cm) PWs1.4 cm Normal left ventricular chamber size, systolic function and wall motion. Left ventricular ejection fraction estimated to be 60-65 %. No evidence of left ventricular hypertrophy. No evidence of pericardial effusion. Left atrial size at upper limits of normal. Right cardiac chamber sizes are within normal limits. Focal aortic valve sclerosis with adequate cusp excursion. Thickened mitral valve leaflets with normal excursion. Mitral annulus and aortic root calcification. Normal pulmonic valve structure. Normal tricuspid valve structure. IVC at normal size with physiologic collapse. A color flow and spectral Doppler study was performed and revealed: No aortic insufficiency . Trace mitral regurgitation. Mitral diastolic velocities suggest reduced left ventricular relaxation c/w mild LV diastolic dysfunction (Grade I ). Trace tricuspid regurgitation. Tricuspid systolic velocities suggests peak right ventricular systolic pressure of 12 mmHg. Trace pulmonic regurgitation present.
--- NOTE | 2019-03-08 14:54 | Pulmonology Progress Note ---
Assessment/Plan Problems: (1) Pleural effusion (2) Hepatitis C (3) Hypertension (4) Coronary artery disease (5) Anxiety (6) S/P cholecystectomy Assessment/Plan cytology was positive for malignancy almost 2 liters removed pathology pending, will be ready tomorrow, talked to pathologist Ct chest reviewed, no obvious cancer, thickening of right parietal pleura pt wants to go to longterm Subjective ROS Limited/Unobtainable: No Constitutional: Reports: no symptoms HEENT: Repors: no symptoms Allergies: Coded Allergies: No Known Allergies (Unverified , 02/16/13) Objective Last 24 Hour Vital Signs Date Time Temp Pulse Resp B/P (MAP) Pulse Ox O2 Delivery O2 Flow Rate FiO2 03/08/19 12:00 76 03/08/19 12:00 97.9 74 18 104/60 (75) 98 03/08/19 09:36 79 116/60 03/08/19 09:00 Nasal Cannula 2.0 Nasal Cannula 2.0 03/08/19 08:00 98.4 79 20 116/60 (78) 95 03/08/19 08:00 86 03/08/19 04:00 91 03/08/19 04:00 99.5 89 22 116/75 (89) 93 03/08/19 00:01 84 03/08/19 00:00 99.7 85 20 112/65 (81) 94 03/07/19 22:11 Nasal Cannula 2.0 Nasal Cannula 2.0 03/07/19 20:00 98.5 94 20 118/79 (92) 93 03/07/19 20:00 84 03/07/19 18:17 98.2 03/07/19 16:00 98.2 75 22 114/66 (82) 94 03/07/19 15:14 74 Intake and Output 03/07/19 03/08/19 19:00 07:00 Intake Total 1000 ml Balance 1000 ml Intake Oral 0 ml IV Total 1000 ml # Voids 1 1 # Bowel Movements 2 1 General Appearance: cachetic HEENT: normocephalic, atraumatic Respiratory/Chest: chest wall non-tender, lungs clear Cardiovascular: normal peripheral pulses, normal rate Abdomen: normal bowel sounds, soft, non tender Genitourinary: normal external genitalia Extremities: no cyanosis Skin: no ulcers Lymphatic: no neck adenopathy Laboratory Tests 03/08/19 05:54: White Blood Count 9.8, Red Blood Count 4.86, Hemoglobin 11.7L, Hematocrit 36.4L , Mean Corpuscular Volume 75L, Mean Corpuscular Hemoglobin 24.1L, Mean Corpuscular Hemoglobin Concent 32.2, Red Cell Distribution Width 15.2H, Platelet Count 204, Mean Platelet Volume 7.0, Neutrophils (%) (Auto) 76.2H, Lymphocytes (%) (Auto) 10.7L, Monocytes (%) (Auto) 9.5, Eosinophils (%) (Auto) 3.0, Basophils (%) (Auto) 0.5, Sodium Level 134L, Potassium Level 3.3L, Chloride Level 96L, Carbon Dioxide Level 29, Anion Gap 9, Blood Urea Nitrogen 13 , Creatinine 0.6, Estimat Glomerular Filtration Rate , Glucose Level 106, Calcium Level 9.7 Current Medications Medications (Trade) Dose Ordered Sig/Richard Route PRN Reason Start Time Stop Time Status Last Admin Dose Admin Acetaminophen (Tylenol) 650 mg Q6H PRN ORAL Mild Pain,Temp > 100.0 03/07/19 01:30 04/06/19 01:29 03/07/19 01:31 Alprazolam (Xanax) 0.5 mg Q6H PRN ORAL For Anxiety 03/06/19 07:00 03/13/19 06:59 03/07/19 21:46 Atenolol (Tenormin) 25 mg DAILY ORAL 03/06/19 09:00 04/05/19 08:59 03/08/19 09:36 Carisoprodol (Soma) 350 mg THREE TIMES A DAY ORAL 03/07/19 13:00 04/06/19 12:59 03/08/19 13:19 Clonazepam (KlonoPIN) 1 mg DAILY ONCE ORAL 03/08/19 14:00 03/08/19 14:01 UNV Ferrous Sulfate (Feosol) 325 mg DAILY ORAL 03/06/19 09:00 04/05/19 08:59 03/08/19 09:35 Heparin Sodium (Porcine) (Heparin 5000 units/ml) 5,000 units EVERY 12 HOURS SUBQ 03/06/19 09:00 04/05/19 08:59 03/08/19 09:41 Ibuprofen (Motrin) 600 mg Q6H PRN ORAL For Pain 03/06/19 07:00 04/05/19 06:59 Iopamidol (Isovue-300 100ml) 100 ml NOW PRN INJ Radiology Procedure 03/07/19 12:15 03/09/19 12:01 Mirtazapine (Remeron) 7.5 mg BEDTIME ORAL 03/08/19 21:00 04/07/19 20:59 Ondansetron HCl (Zofran ODT) 4 mg Q6H PRN ORAL Nausea & Vomiting 03/06/19 07:00 04/05/19 06:59 Pantoprazole (Protonix) 40 mg DAILY ORAL 03/06/19 09:00 04/05/19 08:59 03/08/19 09:35 Tamsulosin HCl (Flomax) 0.4 mg BEDTIME ORAL 03/06/19 21:00 04/05/19 20:59 03/07/19 20:40 Zolpidem Tartrate (Ambien) 5 mg HSPRN PRN ORAL Insomnia 03/06/19 07:00 03/13/19 06:59 03/07/19 20:40 Kiran Zhu MD Mar 08, 2019 14:54
--- NOTE | 2019-03-08 15:14 | Cardiology Report ---
APPROVED REPORT EKG Measurement Heart [id number] CO [id number] [id number] Normal sinus rhythm Normal ECG
[2019-03-08 16:00] VITALS: BP 110/65
--- NOTE | 2019-03-08 16:58 | Internal Med Progress Note ---
Subjective Physician Name Arturo Blank Attending Physician Arturo Blank MD Current Medications Medications (Trade) Dose Ordered Sig/Richard Route PRN Reason Start Time Stop Time Status Last Admin Dose Admin Acetaminophen (Tylenol) 650 mg Q6H PRN ORAL Mild Pain,Temp > 100.0 03/07/19 01:30 04/06/19 01:29 03/07/19 01:31 Alprazolam (Xanax) 0.5 mg Q6H PRN ORAL For Anxiety 03/06/19 07:00 03/13/19 06:59 03/07/19 21:46 Atenolol (Tenormin) 25 mg DAILY ORAL 03/06/19 09:00 04/05/19 08:59 03/08/19 09:36 Carisoprodol (Soma) 350 mg THREE TIMES A DAY ORAL 03/07/19 13:00 04/06/19 12:59 03/08/19 13:19 Clonazepam (KlonoPIN) 1 mg DAILY ORAL 03/09/19 09:00 03/12/19 08:59 Ferrous Sulfate (Feosol) 325 mg DAILY ORAL 03/06/19 09:00 04/05/19 08:59 03/08/19 09:35 Heparin Sodium (Porcine) (Heparin 5000 units/ml) 5,000 units EVERY 12 HOURS SUBQ 03/06/19 09:00 04/05/19 08:59 03/08/19 09:41 Ibuprofen (Motrin) 600 mg Q6H PRN ORAL For Pain 03/06/19 07:00 04/05/19 06:59 Iopamidol (Isovue-300 100ml) 100 ml NOW PRN INJ Radiology Procedure 03/07/19 12:15 03/09/19 12:01 Mirtazapine (Remeron) 7.5 mg BEDTIME ORAL 03/08/19 21:00 04/07/19 20:59 Ondansetron HCl (Zofran ODT) 4 mg Q6H PRN ORAL Nausea & Vomiting 03/06/19 07:00 04/05/19 06:59 Pantoprazole (Protonix) 40 mg DAILY ORAL 03/06/19 09:00 04/05/19 08:59 03/08/19 09:35 Tamsulosin HCl (Flomax) 0.4 mg BEDTIME ORAL 03/06/19 21:00 04/05/19 20:59 03/07/19 20:40 Zolpidem Tartrate (Ambien) 5 mg HSPRN PRN ORAL Insomnia 03/06/19 07:00 03/13/19 06:59 03/07/19 20:40 Allergies: Coded Allergies: No Known Allergies (Unverified , 02/16/13) Subjective Patient is awake, alert, responsive, no chest pain, no shortness of breath. Objective Last Vital Signs Date Time Temp Pulse Resp B/P (MAP) Pulse Ox O2 Delivery O2 Flow Rate FiO2 03/08/19 12:00 76 03/08/19 12:00 97.9 18 104/60 (75) 98 03/08/19 09:00 Nasal Cannula 2.0 Nasal Cannula 2.0 Laboratory Tests Test 03/08/19 05:54 White Blood Count 9.8 K/UL (4.8-10.8) Red Blood Count 4.86 M/UL (4.70-6.10) Hemoglobin 11.7 G/DL (14.2-18.0) L Hematocrit 36.4 % (42.0-52.0) L Mean Corpuscular Volume 75 FL (80-99) L Mean Corpuscular Hemoglobin 24.1 PG (27.0-31.0) L Mean Corpuscular Hemoglobin Concent 32.2 G/DL (32.0-36.0) Red Cell Distribution Width 15.2 % (11.6-14.8) H Platelet Count 204 K/UL (150-450) Mean Platelet Volume 7.0 FL (6.5-10.1) Neutrophils (%) (Auto) 76.2 % (45.0-75.0) H Lymphocytes (%) (Auto) 10.7 % (20.0-45.0) L Monocytes (%) (Auto) 9.5 % (1.0-10.0) Eosinophils (%) (Auto) 3.0 % (0.0-3.0) Basophils (%) (Auto) 0.5 % (0.0-2.0) Sodium Level 134 MMOL/L (136-145) L Potassium Level 3.3 MMOL/L (3.5-5.1) L Chloride Level 96 MMOL/L (98-107) L Carbon Dioxide Level 29 MMOL/L (21-32) Anion Gap 9 mmol/L (5-15) Blood Urea Nitrogen 13 mg/dL (7-18) Creatinine 0.6 MG/DL (0.55-1.30) Estimat Glomerular Filtration Rate mL/min (>60) Glucose Level 106 MG/DL (74-106) Calcium Level 9.7 MG/DL (8.5-10.1) Intake and Output 03/07/19 03/08/19 19:00 07:00 Intake Total 1000 ml Balance 1000 ml Intake Oral 0 ml IV Total 1000 ml # Voids 1 1 # Bowel Movements 2 1 Objective General: No acute distress, awake and alert HEENT: NCAT, sclera anicteric, PERRL, EOMI. Neck: Supple, no significant jugular venous distention, Lungs: Fair inspiratory effort, clear to auscultation bilaterally, decreased air in the bases mostly on the right side left side, no Wheeze or Rales. Heart: Regular rate and rhythm, normal S1/S2, no murmur Abdomen: soft, nontender, nondistended. Normoactive bowel sounds. / Rectal: Refused and deferred. Extremities: No Cyanosis , clubbing or edema. Neuro: A&O x 3, Able to move all extremities Skin: warm, no rashes or lesions Psych: Normal mood and affect Assessment/Plan Assessment/Plan (1) Right side pleural effusion status post above thoracocentesis with removal of 2 L of fluid. (2) Hepatitis C (3) Hypertension (4) Coronary artery disease (5) Anxiety (6) S/P cholecystectomy Assessment/Plan cytology Report was positive for malignancy pathology pending, Ct chest /abdomen/pelvic, no obvious cancer noted. Will monitor laboratory. Consider discharge planning to the SNF Upon discharge CODE STATUS full code DVT prophylaxis is Arturo Lux MD Mar 08, 2019 16:58
[2019-03-08] MEDS ORDERED: Isovue-300 100ml vial INJ PRN (18:00)
[2019-03-08] MEDS ORDERED: ALPRAZolam 0.5mg tab ORAL PRN (18:13)
--- NOTE | 2019-03-08 18:16 | Initial Psychiatric Evaluation ---
Psychiatry Consultation Psychiatry Consultation Chief Complaint: Generalized Weakness History of Present Illness: 73-year-old male, with hx of anxiety do and hepatitis who presents with chief complaint of abdominal pain and chest pain. the pt is severely anxious and has insomnia. the pt stated that he just found out about the "cancer." the pt stated that he is taking xanax and its not effective the pt stated that Allergies: Coded Allergies: No Known Allergies (Unverified , 02/16/13) Medication History Scheduled Atenolol* (Tenormin*), 25 MG ORAL DAILY, (Reported) Citalopram Hydrobromide* (Celexa*), 30 MG PO DAILY, (Reported) Clonazepam* (Klonopin*), 0.5 MG ORAL BID, (Reported) Clotrimazole/Betamethasone Dip (Clotrimazole-Betamethasone Crm), 15 GM TP BID, ( Reported) Daclatasvir Dihydrochloride (Daklinza), 60 MG PO DAILY, (Reported) Diphenoxylate Hcl/Atropine (Diphenoxylate-Atropine Tablet), 1 EACH PO Q12HR, ( Reported) Doxycycline Monohydrate* (Doxycycline Monohydrate*), 100 MG ORAL TWICE A DAY Ferrous Sulfate* (Ferrous Sulfate*), 325 MG ORAL DAILY, (Reported) Folic Acid* (Folic Acid*), 1 MG ORAL DAILY, (Reported) Ibuprofen* (Motrin*), 600 MG ORAL THREE TIMES A DAY Mirtazapine* (Mirtazapine*), 7.5 MG ORAL BEDTIME Omeprazole (Omeprazole), 40 MG ORAL DAILY, (Reported) Potassium Gluconate (Potassium), 20 MG PO BID, (Reported) Sofosbuvir (Sovaldi), 400 MG PO DAILY, (Reported) Tamsulosin HCl (Flomax), 0.4 MG ORAL QHS, (Reported) Tamsulosin HCl (Flomax), 0.4 MG ORAL BEDTIME Vitamin B Complex (Vitamin B Complex), 1 CAP ORAL DAILY, (Reported) [diuretic], MG PO DAILY, (Reported) Scheduled PRN Zolpidem Tartrate* (Zolpidem Tartrate*), 5 MG ORAL BEDTIME PRN for Insomnia, ( Reported) Objective Data Height (Feet): 5 Height (Inches): 8.00 Weight (Pounds): 168 Assessment/Plan Problem List: (1) MDD (major depressive disorder) ICD Codes: F32.9 - Major depressive disorder, single episode, unspecified SNOMED: 589242380 (2) Alcohol abuse ICD Codes: F10.10 - Alcohol abuse, uncomplicated SNOMED: 71744047 (3) Anxiety ICD Codes: F41.9 - Anxiety disorder, unspecified; F48.9 - Nonpsychotic mental disorder, unspecified SNOMED: 98560111 Assessment/Plan: start courtneyonoeriberto rodriguez ro/Peg Jorgensen MD Mar 08, 2019 18:16
[2019-03-08 20:00] VITALS: BP 123/71
[2019-03-08] MEDS ORDERED: Zolpidem 5mg tab ORAL PRN (21:00)
[2019-03-08] MEDS ORDERED: Tamsulosin 0.4mg cap ORAL SCH (21:00)
--- NOTE | 2019-03-08 21:44 | Psych Consult Progress Note ---
Psychiatry Progress Note Psychiatry Progress Note Medications Current Medications Medications (Trade) Dose Ordered Sig/Richard Route PRN Reason Start Time Stop Time Status Last Admin Dose Admin Acetaminophen (Tylenol) 650 mg Q6H PRN ORAL Mild Pain,Temp > 100.0 03/08/19 18:13 04/06/19 18:12 Alprazolam (Xanax) 0.5 mg Q6H PRN ORAL For Anxiety 03/08/19 18:13 03/13/19 18:12 03/08/19 20:51 Atenolol (Tenormin) 25 mg DAILY ORAL 03/09/19 09:00 04/05/19 08:59 Carisoprodol (Soma) 350 mg THREE TIMES A DAY ORAL 03/09/19 09:00 04/06/19 12:59 Clonazepam (KlonoPIN) 1 mg DAILY ORAL 03/09/19 09:00 03/12/19 08:59 Ferrous Sulfate (Feosol) 325 mg DAILY ORAL 03/09/19 09:00 04/05/19 08:59 Heparin Sodium (Porcine) (Heparin 5000 units/ml) 5,000 units EVERY 12 HOURS SUBQ 03/08/19 21:00 04/05/19 08:59 03/08/19 20:55 Ibuprofen (Motrin) 600 mg Q6H PRN ORAL For Pain 03/08/19 18:14 04/05/19 18:13 Mirtazapine (Remeron) 7.5 mg BEDTIME ORAL 03/08/19 21:00 04/07/19 20:59 03/08/19 20:51 Ondansetron HCl (Zofran ODT) 4 mg Q6H PRN ORAL Nausea & Vomiting 03/08/19 18:13 04/05/19 18:12 Pantoprazole (Protonix) 40 mg DAILY ORAL 03/09/19 09:00 04/05/19 08:59 Tamsulosin HCl (Flomax) 0.4 mg BEDTIME ORAL 03/08/19 21:00 04/05/19 20:59 03/08/19 20:52 Zolpidem Tartrate (Ambien) 5 mg HSPRN PRN ORAL Insomnia 03/08/19 21:00 03/15/19 20:59 Neurological/Psychiatric: Reports: anxiety, depressed, emotional problems Allergies: Coded Allergies: No Known Allergies (Unverified , 4/6/13) Objective Data Height (Feet): 5 Height (Inches): 8.00 Weight (Pounds): 168 General Appearance: WD/WN, no apparent distress, alert Appearance: well groomed Behavior Mannerisms: good eye contact Mental Status Exam - Mood: anxious Speech: clear Mental Status Exam - Thought P: no abnormalities Mental Status Exam - Cognition: no abnormalities Assessment/Plan Problem List: (1) MDD (major depressive disorder) ICD Codes: F32.9 - Major depressive disorder, single episode, unspecified SNOMED: 982164574 (2) Alcohol withdrawal (3) Anxiety ICD Codes: F41.9 - Anxiety disorder, unspecified; F48.9 - Nonpsychotic mental disorder, unspecified SNOMED: 79128392 Status: stable Assessment/Plan: start klonoeriberto nagy provided ro/Peg Jorgensen MD Mar 08, 2019 21:44
[2019-03-09] VITALS: BP 132/68
[2019-03-09 04:00] VITALS: BP 130/74
[2019-03-09 08:00] VITALS: BP 123/55
[2019-03-09] MEDS ORDERED: Atenolol 25mg tab ORAL SCH (09:00)
[2019-03-09] MEDS: Heparin 5000 units/ml inj SUBQ SCH (09:23)
[2019-03-09] MEDS ORDERED: MIRTAZAPINE15 M3 ORAL (11:19)
[2019-03-09] MEDS ORDERED: FLOMAX0.4 MG ORAL (11:19)
[2019-03-09 12:00] VITALS: BP 110/68
--- NOTE | 2019-03-09 22:24 | Psych Consult Progress Note ---
Psychiatry Progress Note Psychiatry Progress Note Neurological/Psychiatric: Reports: anxiety, depressed, emotional problems Allergies: Coded Allergies: No Known Allergies (Unverified , 02/16/13) Objective Data Height (Feet): 5 Height (Inches): 8.00 Weight (Pounds): 168 Appearance: well groomed Behavior Mannerisms: good eye contact Mental Status Exam - Affect: constricted Mental Status Exam - Mood: depressed, anxious Mental Status Exam - Thought P: logical Mental Status Exam - Suicidal: not present Assessment/Plan Problem List: (1) MDD (major depressive disorder) ICD Codes: F32.9 - Major depressive disorder, single episode, unspecified SNOMED: 291246286 (2) Alcohol withdrawal (3) Anxiety ICD Codes: F41.9 - Anxiety disorder, unspecified; F48.9 - Nonpsychotic mental disorder, unspecified SNOMED: 47343031 Assessment/Plan: start klonopin remfatimah provided ro/Peg Jorgensen MD Mar 09, 2019 22:24
--- NOTE | 2019-03-11 11:49 | Discharge Summary ---
Discharge Summary Discharge Summary _ DATE OF ADMISSION: 03/06/1990 DATE OF DISCHARGE: 03/09/2019 DISCHARGED BY: Dr. Blank REASON FOR ADMISSION: 73 years old male with past medical history of EtOH abuse, hypertension, diabetes, hepatitis C, presented with abdominal pain and generalized weakness for [address] of the abdomen and pelvis showed large right pleural effusion. No acute abdominal or pelvic abnormality. Large hiatal hernia. Troponin negative. EKG revealed sinus rhythm, no acute ischemic changes. No leukocytosis , mild anemia with hemoglobin 12.9 , hematocrit 39.8 , platelet count 241, INR 1.1. Sodium 134 ,potassium 3.4. Stable renal parameters. AST 101. Albumin 3.0. Serum alcohol less than 3. Urinalysis revealed +1 protein, no pyuria. Patient subsequently was admitted for further management. CONSULTANTS: pulmonary Dr. Zhu psychiatrist [facility] COURSE: Patient admitted. Patient undergone thoracentesis of right pleural effusion on 03/06 which yielded 1950 mL or mostly bloody fluid. Blood cultures were negative. Cytology of pleural fluid revealed metastatic carcinoma consistent with a pulmonary origin. Echocardiogram demonstrated ejection fraction of 60 to 65% with no evidence of wall motion abnormality, no evidence of left ventricular hypertrophy. Right ventricular systolic pressure of 12. Patient was followed-up with a chest x-ray. Initially after thoracentesis chest x-ray demonstrated decrease in right pleural fluid, no pneumothorax. Chest x-ray the following day demonstrated moderate right pleural effusion. Subsequently patient undergone CT of the chest, which demonstrated large right pleural effusion, no definite pleural mass. Nonspecific thickening of the right parietal pleura. Cancer tumor marker CEA grossly elevated - 200.9. Patient declined further workup for malignancy. DVT prophylaxis provided. Psychiatrist followed. Patient started on Klonopin and Remeron. Reality orientation and supportive therapy provided. [facility] Recommended outpatient further work-up for malignancy if patient agrees. FINAL DIAGNOSES Large right malignant pleural effusion Status post thoracentesis Metastatic carcinoma Hepatitis C Hypertension Coronary artery disease Major depressive disorder Alcohol abuse Anxiety DISCHARGE MEDICATIONS: See Medication Reconciliation list. DISCHARGE INSTRUCTIONS: Patient was discharged to the prison facility. Follow up with medical doctor at the facility. I have been assigned to dictate discharge summary for this account. I was not involved in the patient's management. Farnaz Madrid NP Mar 11, 2019 11:49
== END 2019-03-09 14:27 | DRG 188 ==
LOC: EMR 23:45 → 2E 03-06 01:01 → EDBEDREQ 03-06 01:44 → 2E 03-08 08:29 → 4E 03-08 18:11
PROC: 0W993ZZ Drainage of Right Pleural Cavity, Percutaneous Approach (ICD-10-PCS; principal; 2019-03-06)
DX: J90 Pleural effusion, not elsewhere classified (principal); R07.9 Chest pain, unspecified; B19.20 Unspecified viral hepatitis C without hepatic coma; I10 Essential (primary) hypertension; F10.21 Alcohol dependence, in remission; M26.609 Unspecified temporomandibular joint disorder, unspecified side; Z90.49 Acquired absence of other specified parts of digestive tract; Z87.891 Personal history of nicotine dependence; I25.10 Atherosclerotic heart disease of native coronary artery without angina pectoris; F32.9 Major depressive disorder, single episode, unspecified; F41.9 Anxiety disorder, unspecified; R10.9 Unspecified abdominal pain
CPT/HCPCS: 36415; 71045; 71260; 74176; 76942; 80048; 80053; 80329; 81003; 82378; 83690; 83735; 83880; 84100; 84484; 85025; 85610; 85730; 86580; 87040; 88104; 89051; 93005; 93306; 94664; 94760; 96361; 96374; 99285; J8499

== ENCOUNTER 2019-03-17 18:56 | Inpatient (IN) | payer MEDICARE, OTHER ==
[~2019-03-17] VITALS: Ht 167.6 cm; Wt 66.4 kg
[~2019-03-17 18:56] MED LIST changes: +MIRTAZAPINE15 M3 ORAL
[2019-03-17] MEDS ORDERED: Albuterol ud Inhalation HHN ONE (19:00)
[2019-03-17] MEDS ORDERED: Solu-MEDROL 125mg Inj IVP ONE (19:00)
[2019-03-17] MEDS ORDERED: Ipratropium 0.02% Inh Soln 2.5ml UD HHN ONE (19:00)
--- NOTE | 2019-03-17 19:00 | NUR ---
ED Nurse Note: Patient BIBA with complaints of SOB x 2weeks. Episode of desaturation today. Patient normally on 2L. Patient brought in on non-rebreather. Patient placed on BIPAP. Settings 15/5 back up rate of 16 on 100% O2.
--- NOTE | 2019-03-17 19:07 | Emergency Room Report ---
History of Present Illness General Chief Complaint: Dyspnea/Respdistress Source: Patient, Medical Record, EMS Present Illness HPI Patient is brought in by EMS for dyspnea. Apparently at the retirement facility there was a chest x-ray done that showed a right-sided infiltrate. He was on nasal cannula when EMS arrived and he was satting in the high 80s. He was placed on a percent nonrebreather. No treatment that was instituted. The patient states he has chest pain left-sided and right-sided it's pleuritic. Has a cough. This difficulty answering questions because he is short of breath at this time. He states he's never been intubated. Stopped smoking in 1981. Patient was admitted March 06 with a pleural effusion. This was tapped at that time. Pathology shows cells most consistent with metastatic lung carcinoma. The patient has a post that he signed stating DO NOT RESUSCITATE. Discharge diagnoses - 03/09: Large right malignant pleural effusion Status post thoracentesis Metastatic carcinoma Hepatitis C Hypertension Coronary artery disease Major depressive disorder Alcohol abuse Anxiety Allergies: Coded Allergies: No Known Allergies (Unverified , 02/16/13) Patient History Limited by: medical condition Past Medical History: see triage record Social History: Denies: smoking - stopped 1981 Social History Narrative Griffin Alcazar DNR Reviewed Nursing Documentation: PMH: Agreed; PSxH: Agreed Nursing Documentation-PMH Hx Cardiac Problems: Yes Hx Hypertension: Yes Hx Pacemaker: No Hx Asthma: No Hx COPD: No Hx Diabetes: Yes Hx Cancer: No Hx Gastrointestinal Problems: Yes Hx Dialysis: No Hx Neurological Problems: No Hx Cerebrovascular Accident: No Hx Transient Ischemic Attacks: No Hx Dementia: No Hx Alzheimer's Disease: No Hx Parkinson's Disease: No Hx Meningitis: No Hx Encephalitis: No Hx Seizures: No Hx Epilepsy: No Hx Multiple Sclerosis: No Hx Cerebral Palsy: No Hx Amyotrophic Lat Sclerosis: No Hx Guillian-Winthrop Syndrome: No Hx Paralysis: No Hx Peripheral Neuropathy: No Hx Spinal Cord Injury: No Hx Head Trauma: No Hx Traumatic Brain Injury: No Hx Memory Loss: No Hx Concentration Difficulty: No Hx Speech Problem: No Hx Tremors: No Hx Vertigo: No Hx Dizziness: Yes - right hear hearing loss Hx Syncope: Yes - pa Hx Headaches: No Hx Aphasia: No Hx Dysphasia: No Hx Numbness: No Hx Weakness: No Hx Fatigue: No Hx Neurologic Surgery: No Hx Brain Shunt: No Review of Systems All Other Systems: limited Physical Exam Vital Signs Date Time Temp Pulse Resp B/P (MAP) Pulse Ox O2 Delivery O2 Flow Rate FiO2 03/17/19 18:51 97.0 81 25 97 Non-Rebreather 15.0 Sp02 EP Interpretation: reviewed, abnormal - Interpreted as low by me, other - Patient to General Appearance: alert, GCS 15, non-toxic, mild distress Head: normocephalic, atraumatic Eyes: bilateral eye normal inspection, bilateral eye PERRL ENT: moist mucus membranes Respiratory: respiratory distress - Minimal tachypnea, crackles, rales - Right Cardiovascular #1: regular rate, rhythm, no edema Cardiovascular #2: 2+ radial (L) Gastrointestinal: non tender, decreased bowel sounds Neurologic: alert, oriented x3, grossly normal Psychiatric: anxious Skin: pallor Procedures Critical Care Time Critical Care Time Total Critical Care Time: 90 min bedside evaluation and treatment excludes procedures (EKG). Reason for critical care: Respiratory distress, malignant effusion, BiPAP, discussion of end-of-life care with patient, positive troponin Possible complications: hypotension, hypertension, VT, shock, arrhythmias, metabolic acidosis, end organ damage, respiratory failure. Interventions: BiPAP, end-tidal CO2 monitoring, breathing treatments, Solu- Medrol, discussion end-of-life care, aspirin Course: Patient presented with respiratory difficulty. Breathing treatments and Solu-Medrol begun. Evaluation for possible pneumonia. Chest x-ray with large right pleural effusion. White count elevated and antibiotics begun. Patient improved on BiPAP and 100% nonrebreather used with CO2 monitoring with adequate ventilation but still increased work with breathing. Morphine administered for chest pain. At this point old records were found and reviewed. Pathology revealed malignant effusion. Positive troponin treated with aspirin. Patient removed the mask at one point and that he wanted to give up. He became dyspneic and desaturated. The mask was reapplied and we had a discussion about comfort care. He was complaining about abdominal pain at that time and morphine was repeated. Presented to the admitting physician and discussed the fact that the patient still wanted DNR/DNI status. Patient admitted to stepdown unit. 15 minutes before consideration of transferring to floor patient became more diaphoretic. RT was summoned and told to set up BiPAP for the floor. The patient agreed to be on BiPAP at that time. Consultations: nursing staff, EMS, admitting MD, RT Performed by: Dr. Alvarez Tolerated well condition = serious Medical Decision Making Diagnostic Impression: Primary Impression: Respiratory distress Additional Impressions: Pleural effusion, right Metastatic lung carcinoma Qualified Codes: C78.01 - Secondary malignant neoplasm of right lung Leukocytosis Qualified Codes: D72.829 - Elevated white blood cell count, unspecified ER Course Patient presents with dyspnea and possible right-sided infiltrate. Differential includes pneumonia, pulmonary embolus, acute myocardial infarction , congestive heart failure amongst others. He's in respiratory distress at this time and needs to have BiPAP started with breathing treatments. Evaluation with EKG, chest x-ray and labs. EKG NSR, no injury. CXR R effusion/white out. Improved on BiPAP and getting breathing treatments. C/O pain - morphine ordered. Requests off of BiPAP. Trial non-rebreather again. CO2 = 26. + troponin - ordered aspirin. Patient took off O2. Says wants to give up but then allowed to have O2 replaced. Discussed DNR status. States he still wants this. Abdominal pain. Morphine repeat. See critical care note. Discussed with Dr. Blank. Advised that patient may need urgent therapeutic thoracentesis. Patient admitted to stepdown unit improved but still dyspneic. Laboratory Tests Test 03/17/19 19:15 03/17/19 19:30 03/17/19 22:50 White Blood Count 21.1 K/UL (4.8-10.8) H Red Blood Count 4.59 M/UL (4.70-6.10) L Hemoglobin 10.8 G/DL (14.2-18.0) L Hematocrit 32.7 % (42.0-52.0) L Mean Corpuscular Volume 71 FL (80-99) L Mean Corpuscular Hemoglobin 23.6 PG (27.0-31.0) L Mean Corpuscular Hemoglobin Concent 33.1 G/DL (32.0-36.0) Red Cell Distribution Width 14.3 % (11.6-14.8) Platelet Count 261 K/UL (150-450) Mean Platelet Volume 6.4 FL (6.5-10.1) L Neutrophils (%) (Auto) % (45.0-75.0) Lymphocytes (%) (Auto) % (20.0-45.0) Monocytes (%) (Auto) % (1.0-10.0) Eosinophils (%) (Auto) % (0.0-3.0) Basophils (%) (Auto) % (0.0-2.0) Differential Total Cells Counted 100 Neutrophils % (Manual) 87 % (45-75) H Lymphocytes % (Manual) 6 % (20-45) L Monocytes % (Manual) 5 % (1-10) Eosinophils % (Manual) 0 % (0-3) Basophils % (Manual) 0 % (0-2) Band Neutrophils 2 % (0-8) Platelet Estimate Adequate Platelet Morphology Normal Polychromasia 1+ Hypochromasia 1+ Anisocytosis 1+ Prothrombin Time 12.0 SEC (9.30-11.50) H Prothrombin Time INR 1.1 (0.9-1.1) PTT 24 SEC (23-33) Sodium Level 128 MMOL/L (136-145) L Potassium Level 3.5 MMOL/L (3.5-5.1) Chloride Level 87 MMOL/L (98-107) L Carbon Dioxide Level 32 MMOL/L (21-32) Anion Gap 9 mmol/L (5-15) Blood Urea Nitrogen 29 mg/dL (7-18) H Creatinine 0.7 MG/DL (0.55-1.30) Estimate Glomerular Filtration Rate mL/min (>60) Glucose Level 139 MG/DL (74-106) H Lactic Acid Level 2.30 mmol/L (0.4-2.0) H 2.20 mmol/L (0.66-2.22) Calcium Level 11.0 MG/DL (8.5-10.1) H Total Bilirubin 0.6 MG/DL (0.2-1.0) Aspartate Amino Transferase (AST) 1267 U/L (15-37) H Alanine Aminotransferase (ALT) 129 U/L (12-78) H Alkaline Phosphatase 987 U/L (46-116) H Total Creatine Kinase 1068 U/L (26-308) H Troponin I 0.063 ng/mL (0.000-0.056) Pro-B-Type Natriuretic Peptide 883 pg/mL (0-125) H Total Protein 7.2 G/DL (6.4-8.2) Albumin 2.4 G/DL (3.4-5.0) L Globulin 4.8 g/dL Albumin/Globulin Ratio 0.5 (1.0-2.7) L Lipase 103 U/L (73-393) Urine Color Yellow Urine Appearance Clear Urine pH 5 (4.5-8.0) Urine Specific [place] 1.025 (1.005-1.035) Urine Protein Negative (NEGATIVE) Urine Glucose (UA) Negative (NEGATIVE) Urine Ketones Negative (NEGATIVE) Urine Blood 1+ (NEGATIVE) H Urine Nitrite Negative (NEGATIVE) Urine Bilirubin Negative (NEGATIVE) Urine Urobilinogen 4 MG/DL (0.0-1.0) H Urine Leukocyte Esterase Negative (NEGATIVE) Urine RBC 2-4 /HPF (0 - 0) H Urine WBC 0-2 /HPF (0 - 0) Urine Squamous Epithelial Cells None /LPF (NONE/OCC) Urine Bacteria Few /HPF (NONE) EKG Diagnostic Results Rate: normal Rhythm: NSR ST Segments: no acute changes Rhythm Strip Diag. Results EP Interpretation: yes Rhythm: NSR, other - occ PVCs, rate 92 Chest X-Ray Diagnostic Results Chest X-Ray Diagnostic Results : Chest X-Ray Ordered: Yes # of Views/Limited/Complete: 1 View Indication: Shortness of Breath EP Interpretation: Yes Interpretation: no pneumothorax, other - R white out Impression: Other Electronically Signed by: Electronically signed by Milo Alvarez MD Last Vital Signs Date Time Temp Pulse Resp B/P (MAP) Pulse Ox O2 Delivery O2 Flow Rate FiO2 03/17/19 21:40 97.0 92 24 136/76 97 Non-Rebreather 15.0 100 92 Status: improved Disposition: ADMITTED INPATIENT Condition: Critical Milo Alvarez MD March 17, 2019 19:07
--- NOTE | 2019-03-17 19:14 | NUR ---
RESPIRATORY NOTE: PT. BROUGHT IN TO ER VIA AMBULANCE FOR SOB AND DYSPNEA. PT WAS PLACED ON BIPAP 15/5 BACK UP RATE OF 16, 100% FIO2 PER DR. DOMINIQUE VERBAL ORDER. AUSCULTATION REVEALED DIMINISHED TO ABSENT BREATH SOUNDS ON THE RIGHT SIDE. PT WAS GIVEN 5.0 mg ALBUTEROL+ 0.5 mg ATROVENT IN LINE. FOAM TAPE IN PLACE. NO FACIAL WOUNDS OR REDNESS FOUND BEFORE PLACING TAPE ON PT'S FACE. ALARMS ARE ON AND AUDIBLE. BIPAP CONNECTED TO RED OUTLET. BIPAP CIRCUIT SECURE AND OUT OF THE WAY. WILL CONTINUE TO MONITOR PT.
[2019-03-17] MEDS ORDERED: FUROSEMIDE40 MG ORAL (19:15)
[2019-03-17] MEDS ORDERED: OMEPRAZOLE20 M3 ORAL (19:15)
[2019-03-17 19:26] VITALS: BP 131/85
[2019-03-17] MEDS ORDERED: Morphine Sulfate 2mg/ml Inj(IV/IM USE ONLY) IVP ONE ×2 (19:30→21:00)
[2019-03-17 19:35] LABS: HEMATOCRIT 32.7 % (42.0-52.0); HEMOGLOBIN 10.8 G/DL (14.2-18.0); MEAN CORPUSCULAR VOLUME 71 FL (80-99); PLATELET COUNT 261 K/UL (150-450); RED BLOOD COUNT 4.59 M/UL (4.70-6.10); RED CELL DISTRIBUTION WIDTH 14.3 % (11.6-14.8); WHITE BLOOD COUNT 21.1 K/UL (4.8-10.8)
[2019-03-17 19:38] VITALS: BP 131/85
[2019-03-17 19:41] LABS: INR 1.1 (0.9-1.1)
[2019-03-17 19:42] LABS: ANION GAP 9 mmol/L (5-15); BLOOD UREA NITROGEN 29 mg/dL (7-18); CARBON DIOXIDE 32 MMOL/L (21-32); CHLORIDE 87 MMOL/L (98-107); CREATININE 0.7 MG/DL (0.55-1.30); POTASSIUM 3.5 MMOL/L (3.5-5.1); SODIUM 128 MMOL/L (136-145)
[2019-03-17] MEDS ORDERED: Piperacillin/Tazobactam 3.375 GM in NS 110 ML IVPB ONE (19:45)
[2019-03-17] MEDS ORDERED: Isovue-370 150ml vial INJ PRN (20:00)
[2019-03-17 20:02] LABS: ALANINE AMINOTRANSFERASE 129 U/L (12-78); ALBUMIN 2.4 G/DL (3.4-5.0); ALBUMIN/GLOBULIN RATIO 0.5 (1.0-2.7); ALKALINE PHOSPHATASE 987 U/L (46-116); ASPARTATE AMINO TRANSFERASE 1267 U/L (15-37); BILIRUBIN,TOTAL 0.6 MG/DL (0.2-1.0); CREATINE KINASE 1068 U/L (26-308)
[2019-03-17 20:19] LABS: APPEARANCE,URINE CLEAR; BILIRUBIN, URINE NEGATIVE (NEGATIVE); GLUCOSE, URINE (UA) NEGATIVE (NEGATIVE); KETONES,URINE NEGATIVE (NEGATIVE); LEUKOCYTE ESTERASE ,URINE NEGATIVE (NEGATIVE); NITRITE,URINE NEGATIVE (NEGATIVE); PH,URINE 5 (4.5-8.0); PROTEIN,URINE NEGATIVE (NEGATIVE); UROBILINOGEN,URINE 4 MG/DL (0.0-1.0)
[2019-03-17 20:21] LABS: COLOR,URINE YELLOW
--- NOTE | 2019-03-17 20:21 | NUR ---
ED Nurse Note: Patietn unable to sustain o2 saturation within normal range without nonre breather mask. Patient clearly in respiratory distress, breathing is labored. patient is still winded with each breath. Vital signs appear within normal range and documented.
[2019-03-17 20:24] VITALS: BP 136/76
--- NOTE | 2019-03-17 20:25 | NUR ---
ED Nurse Note: Patient now has complaints of stomach pain 01/20 ERMD notified.
--- NOTE | 2019-03-17 21:40 | NUR ---
ED Nurse Note: Report called into Sandy RN prior to transport to floor by PAULINA Tsai and Kim RN. Rt called to support change to BIpap once to floor. Patient transported without incident.
[2019-03-17 21:45] VITALS: BP 150/91
--- NOTE | 2019-03-17 21:45 | NUR ---
NURSE NOTES: Patient arrived via gurney from ED to SDU 241-2 under the care of Dr. IGLESIAS. Accompanied by 2 ED staff members. Patient is awake oriented x 3 . on BiPAP 15/5 100% with good seal around mask and no leaks.SR on monitor. BP 150/90 HR of 90 Afebrile.but diaphoretic and minimal tachypnea. RR of 26.Skin body assessment done. skin intact.Denies any pain at this time.call light in reach and bed in locked with lowest position for safety.checked belongings with ED nurse.IV to RW G20 LFA G22 intact. Running NS as ordered.will continue to monitor closely
--- NOTE | 2019-03-17 22:20 | NUR ---
ED Nurse Note: One order uncarried out in ER. Medication pulled in ER and administered on floor.
[2019-03-18] VITALS: BP 122/70
--- NOTE | 2019-03-18 03:00 | NUR ---
NURSE NOTES: patient is stable with BiPAP 15/5 90%. O2 saturation is 98%. breathing even and unlabored. vs stable. afebrile.Denies chest pain .using urinal.will continue to monitor.
[2019-03-18 04:00] VITALS: BP 154/93
--- NOTE | 2019-03-18 05:19 | NUR ---
RESPIRATORY NOTE: PT REMAINED STABLE ON BIPAP WITH CURRENT SETTINGS, BIPAP CIRCUIT SECURE AND OUT OF THE WAY. NO NEW ORDERS POST ABG RESULTS. NO S/S OF RESPIRATORY DISTRESS NOTED AT THIS TIME.
--- NOTE | 2019-03-18 07:10 | NUR ---
RESPIRATORY NOTE: PT. STABLE ON CURRENT BIPAP ORDERS. MASK WAS REMOVED TO OFFSET PRESSURE AND INSPECT FACE. NO WOUNDS WERE FOUND. HOWEVER, PT QUICKLY DESATURATES OFF BIPAP. FACE WAS RE-TAPED AND PT WAS PLACED BACK ON BIPAP. WILL CONTINUE TO MONITOR.
--- NOTE | 2019-03-18 07:49 | NUR ---
HAND-OFF: Report given to TOMMIE BALDERAS RN.
[2019-03-18 08:00] VITALS: BP 147/95
--- NOTE | 2019-03-18 08:10 | NUR ---
NURSE NOTES: received pt in the bed, awake, alert, vital signs stable, no co pain, pt on Bipap 15/5, FIO2 90%, no tolerate without Bipap, skin warm and dry to touch, intact, use urinal, yellow urine, bed in low position, call light within reach.
--- NOTE | 2019-03-18 08:55 | NUR ---
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 METASTATIC LUNG CARCINOMA . LEUKOCYTOSIS VS: BP 126/84, P 99, T 97.0, RR 25, SpO2 100 ON Bi-pap 15.0L FiO2 100 WBC 21.1, RBC 4.59, H&H 10.8/32.7, Na 123, BUN 29, TROPONIN I 0.063 IS:NSx1L IV SOLU-MEDROL 125mg IVP ATROVENT 500mcg HHN PROVENTIL 5mg HHN MORPHINE 2mg IVP ZOFRAN 4mg IVP LEVOFLOXACIN 150ml IVPB ZOSYN 110ml IVPB ADMITTED TO SDU DCP: RETURN TO [facility]
[2019-03-18] MEDS: clonazePAM 0.5mg tab ORAL SCH ×2 (09:21→17:38)
[2019-03-18] MEDS: Pantoprazole Inj IVP SCH (09:21)
[2019-03-18] MEDS: Aspirin Baby 81mg ORAL SCH (09:21)
[2019-03-18] MEDS: Citalopram Hydrobromide 10mg Tab ORAL SCH (09:22)
[2019-03-18] MEDS ORDERED: NS 275ml ONE (09:45)
--- NOTE | 2019-03-18 10:53 | Consultation ---
Consult Note Consult Note asked to eval for low Na Patient is brought in by EMS for dyspnea. Apparently at the long term facility there was a chest x-ray done that showed a right-sided infiltrate. He was on nasal cannula when EMS arrived and he was satting in the high 80s. He was placed on a percent nonrebreather. No treatment that was instituted. The patient states he has chest pain left-sided and right-sided it's pleuritic. Has a cough. This difficulty answering questions because he is short of breath at this time. He states he's never been intubated. Stopped smoking in 1981. Patient was admitted March 06 with a pleural effusion. This was tapped at that time. Pathology shows cells most consistent with metastatic lung carcinoma. The patient has a post that he signed stating DO NOT RESUSCITATE. Discharge diagnoses - 03/09: Large right malignant pleural effusion Status post thoracentesis Metastatic carcinoma Hepatitis C Hypertension Coronary artery disease Major depressive disorder Alcohol abuse Anxiety patient examined lethargic on BIPAP data reviewed Assessment/Plan HypoNatremia , Etiology?? Need further test results Acute respiratory failure on BiPAP Anemia, Low MCV Elevated LFTs and CK Hypercalcemia PLAN: U os U Na spot S os Uric acid Anemia panel saline with prn lasix per orders Zion Zuleta MD March 18, 2019 10:53
--- NOTE | 2019-03-18 11:42 | Diagnostic Imaging Report ---
Indication: Dyspnea Comparison: 03/07/2019 A single view chest radiograph was obtained. Findings: Complete opacification of the right hemithorax has developed in the interval. There is moderate degree of groundglass opacification, cephalization of the pulmonary vessels on the left lung. There is likely cardiomegaly. There is a probable hiatal hernia. IMPRESSION: Complete opacification of the right hemithorax likely due to pleural effusion. Pulmonary edema
--- NOTE | 2019-03-18 11:49 | Consultation ---
History of Present Illness General Date patient seen: March 18, 2019 Chief Complaint: Dyspnea/Respdistress Present Illness HPI 73 year old male with hx of Hepatitis C, Hypertension, Coronary artery disease, Major depressive disorder, Metastatic lung carcinoma, recently diagnosed brought in from group home with CC of dyspnea. Apparently at the snf facility there was a chest x-ray done that showed a right-sided infiltrate. Pt was satting in the high 80s when he arrived in ER . He was placed on a percent nonrebreather. he had chest pain left-sided and right- sided pleuritic chest pain . Allergies: Coded Allergies: No Known Allergies (Unverified , 02/16/13) Medication History Scheduled Atenolol* (Tenormin*), 25 MG ORAL DAILY, (Reported) Citalopram Hydrobromide* (Celexa*), 30 MG PO DAILY, (Reported) Clonazepam* (Klonopin*), 0.5 MG ORAL BID, (Reported) Clotrimazole/Betamethasone Dip (Clotrimazole-Betamethasone Crm), 15 GM TP BID, ( Reported) Daclatasvir Dihydrochloride (Daklinza), 60 MG PO DAILY, (Reported) Diphenoxylate Hcl/Atropine (Diphenoxylate-Atropine Tablet), 1 EACH PO Q12HR, ( Reported) Doxycycline Monohydrate* (Doxycycline Monohydrate*), 100 MG ORAL TWICE A DAY Ferrous Sulfate* (Ferrous Sulfate*), 325 MG ORAL DAILY, (Reported) Folic Acid* (Folic Acid*), 1 MG ORAL DAILY, (Reported) Furosemide* (Lasix*), 40 MG ORAL DAILY, (Reported) Ibuprofen* (Motrin*), 600 MG ORAL THREE TIMES A DAY Mirtazapine* (Mirtazapine*), 7.5 MG ORAL BEDTIME Omeprazole (Omeprazole), 40 MG ORAL DAILY, (Reported) Omeprazole (Omeprazole), 20 MG ORAL DAILY, (Reported) Potassium Gluconate (Potassium), 20 MG PO BID, (Reported) Sofosbuvir (Sovaldi), 400 MG PO DAILY, (Reported) Tamsulosin HCl (Flomax), 0.4 MG ORAL QHS, (Reported) Tamsulosin HCl (Flomax), 0.4 MG ORAL BEDTIME Vitamin B Complex (Vitamin B Complex), 1 CAP ORAL DAILY, (Reported) [diuretic], MG PO DAILY, (Reported) Scheduled PRN Zolpidem Tartrate* (Zolpidem Tartrate*), 5 MG ORAL BEDTIME PRN for Insomnia, ( Reported) Patient History Healthcare decision maker Resuscitation status Advanced Directive on File No Past Medical/Surgical History Past Medical/Surgical History: (1) S/P cholecystectomy (2) Metastatic lung carcinoma (3) Coronary artery disease (4) Hepatitis C (5) Hypertension (6) Seizure disorder Review of Systems All Other Systems: negative except mentioned in HPI Physical Exam General Appearance: cachetic, thin Lines, tubes and drains: peripheral HEENT: normocephalic, atraumatic Neck: non-tender, normal alignment Respiratory/Chest: chest wall non-tender, decreased breath sounds - at right Cardiovascular/Chest: normal peripheral pulses, normal rate Abdomen: normal bowel sounds, non tender Genitourinary/Rectal: normal rectal exam Extremities: normal range of motion, non-tender Skin Exam: normal pigmentation 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 Lymphatic: anterior cervical Last 24 Hour Vital Signs Date Time Temp Pulse Resp B/P (MAP) Pulse Ox O2 Delivery O2 Flow Rate FiO2 03/18/19 09:22 95 147/95 03/18/19 09:04 95 22 97 Facial 90 03/18/19 08:00 90 03/18/19 08:00 101 03/18/19 08:00 97.3 80 16 147/95 (112) 95 03/18/19 08:00 Bi-pap 03/18/19 07:10 116 17 95 Facial 90 03/18/19 05:19 74 16 98 Facial 90 03/18/19 04:00 Bi-pap 03/18/19 04:00 67 03/18/19 04:00 97.3 100 16 154/93 (113) 98 03/18/19 04:00 90 03/18/19 02:37 70 18 97 Facial 90 03/18/19 01:08 87 21 96 Facial 80 03/18/19 00:00 Bi-pap 03/18/19 00:00 76 03/18/19 00:00 97.3 77 18 122/70 (87) 98 03/18/19 00:00 100 03/17/19 23:25 77 18 99 Facial 100 03/17/19 22:56 82 03/17/19 21:52 96 28 100 Facial 100 03/17/19 21:45 97.5 90 26 150/91 (110) 97 03/17/19 21:45 Bi-pap 03/17/19 21:45 100 03/17/19 21:40 97.0 92 24 136/76 97 Non-Rebreather 15.0 100 92 03/17/19 21:24 95 29 94 03/17/19 20:24 97.0 92 24 136/76 97 Non-Rebreather 15.0 100 92 03/17/19 20:16 97.0 03/17/19 19:43 94 30 97 03/17/19 19:43 94 30 97 Non-Rebreather 15.0 100 03/17/19 19:38 97.0 99 23 131/85 100 Bi-pap 15.0 100 03/17/19 19:38 87 28 Bi-pap 15.0 100 03/17/19 19:26 97.0 99 23 131/85 100 Bi-pap 15.0 100 03/17/19 19:23 87 28 100 Bi-pap 100 03/17/19 19:14 87 28 Bi-pap 100 03/17/19 19:14 89 27 100 Facial 100 03/17/19 18:51 97.0 81 25 97 Non-Rebreather 15.0 Intake and Output 03/17/19 03/18/19 19:00 07:00 Intake Total 1000 ml Output Total 300 ml Balance 700 ml Intake IV Total 1000 ml Output Urine Total 300 ml # Voids 2 Laboratory Tests Test 03/17/19 19:15 03/17/19 19:30 03/17/19 22:50 03/18/19 02:10 White Blood Count 21.1 K/UL (4.8-10.8) H Red Blood Count 4.59 M/UL (4.70-6.10) L Hemoglobin 10.8 G/DL (14.2-18.0) L Hematocrit 32.7 % (42.0-52.0) L Mean Corpuscular Volume 71 FL (80-99) L Mean Corpuscular Hemoglobin 23.6 PG (27.0-31.0) L Mean Corpuscular Hemoglobin Concent 33.1 G/DL (32.0-36.0) Red Cell Distribution Width 14.3 % (11.6-14.8) Platelet Count 261 K/UL (150-450) Mean Platelet Volume 6.4 FL (6.5-10.1) L Neutrophils (%) (Auto) % (45.0-75.0) Lymphocytes (%) (Auto) % (20.0-45.0) Monocytes (%) (Auto) % (1.0-10.0) Eosinophils (%) (Auto) % (0.0-3.0) Basophils (%) (Auto) % (0.0-2.0) Differential Total Cells Counted 100 Neutrophils % (Manual) 87 % (45-75) H Lymphocytes % (Manual) 6 % (20-45) L Monocytes % (Manual) 5 % (1-10) Eosinophils % (Manual) 0 % (0-3) Basophils % (Manual) 0 % (0-2) Band Neutrophils 2 % (0-8) Platelet Estimate Adequate Platelet Morphology Normal Polychromasia 1+ Hypochromasia 1+ Anisocytosis 1+ Prothrombin Time 12.0 SEC (9.30-11.50) H Prothromb Time International Ratio 1.1 (0.9-1.1) Activated Partial Thromboplast Time 24 SEC (23-33) Sodium Level 128 MMOL/L (136-145) L Potassium Level 3.5 MMOL/L (3.5-5.1) Chloride Level 87 MMOL/L (98-107) L Carbon Dioxide Level 32 MMOL/L (21-32) Anion Gap 9 mmol/L (5-15) Blood Urea Nitrogen 29 mg/dL (7-18) H Creatinine 0.7 MG/DL (0.55-1.30) Estimat Glomerular Filtration Rate mL/min (>60) Glucose Level 139 MG/DL (74-106) H Lactic Acid Level 2.30 mmol/L (0.4-2.0) H 2.20 mmol/L (0.66-2.22) Calcium Level 11.0 MG/DL (8.5-10.1) H Total Bilirubin 0.6 MG/DL (0.2-1.0) Aspartate Amino Transf (AST/SGOT) 1267 U/L (15-37) H Alanine Aminotransferase (ALT/SGPT) 129 U/L (12-78) H Alkaline Phosphatase 987 U/L (46-116) H Total Creatine Kinase 1068 U/L (26-308) H Troponin I 0.063 ng/mL (0.000-0.056) Pro-B-Type Natriuretic Peptide 883 pg/mL (0-125) H Total Protein 7.2 G/DL (6.4-8.2) Albumin 2.4 G/DL (3.4-5.0) L Globulin 4.8 g/dL Albumin/Globulin Ratio 0.5 (1.0-2.7) L Lipase 103 U/L (73-393) Urine Color Yellow Urine Appearance Clear Urine pH 5 (4.5-8.0) Urine Specific [place] 1.025 (1.005-1.035) Urine Protein Negative (NEGATIVE) Urine Glucose (UA) Negative (NEGATIVE) Urine Ketones Negative (NEGATIVE) Urine Blood 1+ (NEGATIVE) H Urine Nitrite Negative (NEGATIVE) Urine Bilirubin Negative (NEGATIVE) Urine Urobilinogen 4 MG/DL (0.0-1.0) H Urine Leukocyte Esterase Negative (NEGATIVE) Urine RBC 2-4 /HPF (0 - 0) H Urine WBC 0-2 /HPF (0 - 0) Urine Squamous Epithelial Cells None /LPF (NONE/OCC) Urine Bacteria Few /HPF (NONE) Arterial Blood pH 7.302 (7.350-7.450) Arterial Blood Partial Pressure CO2 65.9 mmHg (35.0-45.0) *H Arterial Blood Partial Pressure O2 77.9 mmHg (75.0-100.0) Arterial Blood HCO3 31.8 mmol/L (22.0-26.0) H Arterial Blood Oxygen Saturation 93.6 % (95-100) L Arterial Blood Base Excess 4.1 (-2-2) H Luis Test Positive Height (Feet): 5 Height (Inches): 6.00 Weight (Pounds): 154 Medications Current Medications Medications (Trade) Dose Ordered Sig/Richard Route PRN Reason Start Time Stop Time Status Last Admin Dose Admin Acetaminophen (Tylenol) 650 mg Q4H PRN ORAL Mild Pain/Temp > 100.5 03/18/19 04:30 04/17/19 04:29 Aspirin (ASA) 81 mg DAILY ORAL 03/18/19 09:00 04/17/19 08:59 03/18/19 09:21 Atenolol (Tenormin) 50 mg DAILY ORAL 03/18/19 09:00 04/17/19 08:59 03/18/19 09:22 Chlorthalidone (Chlorthalidone) 25 mg DAILY ORAL 03/18/19 09:00 04/17/19 08:59 03/18/19 09:21 Citalopram Hydrobromide (celeXA) 30 mg DAILY ORAL 03/18/19 09:00 04/17/19 08:59 03/18/19 09:22 Clonazepam (KlonoPIN) 0.5 mg BID ORAL 03/18/19 09:00 03/25/19 08:59 03/18/19 09:21 Dextrose/ Electrolytes 1,000 ml @ 75 mls/hr [id number] IV 03/18/19 12:00 04/17/19 11:59 Iopamidol (Isovue-370 150ml) 150 ml NOW PRN INJ Radiology Procedure 03/17/19 20:00 03/19/19 19:58 Pantoprazole (Protonix) 40 mg DAILY IVP 03/18/19 09:00 04/17/19 08:59 03/18/19 09:21 Tamsulosin HCl (Flomax) 0.4 mg BID ORAL 03/18/19 11:00 04/17/19 20:59 Zolpidem Tartrate (Ambien) 5 mg HSPRN PRN ORAL Insomnia 03/18/19 04:30 03/25/19 04:29 Assessment/Plan Problem List: (1) Acute respiratory failure ICD Codes: J96.00 - Acute respiratory failure, unspecified whether with hypoxia or hypercapnia SNOMED: 26566519 (2) Pleural effusion, right ICD Codes: J90 - Pleural effusion, not elsewhere classified SNOMED: 98786795 (3) Metastatic lung carcinoma ICD Codes: C78.00 - Secondary malignant neoplasm of unspecified lung SNOMED: 58068629, 84233901, 455389043 Qualifiers: Qualified Codes: C78.01 - Secondary malignant neoplasm of right lung (4) Seizure disorder ICD Codes: G40.909 - Seizure disorder SNOMED: 817615383 (5) Hypertension ICD Codes: I10 - Hypertension SNOMED: 35887228 (6) Hepatitis C ICD Codes: B19.20 - Hepatitis C SNOMED: 40296399 Assessment/Plan: respiratory treatment US of right chest and thoracentesis Thoracic surgery called for possible pleurodesis symptomatic treatment check electrolytes titrate bipap Kiran Zhu MD March 18, 2019 11:49
[2019-03-18 12:00] VITALS: BP 133/86
[2019-03-18] MEDS: Tamsulosin 0.4mg cap ORAL SCH ×2 (12:04→17:38)
--- NOTE | 2019-03-18 12:39 | Diagnostic Imaging Report ---
Indication: Dyspnea Comparison: 03/17/2019 A single view chest radiograph was obtained. Findings: Pulmonary edema appears worse within the left lung. The right hemithorax remains completely opacified. IMPRESSION: Suspected large right pleural effusion Pulmonary edema
[2019-03-18 12:45] LABS: HEMOGLOBIN 10.3 G/DL (14.2-18.0); MEAN CORPUSCULAR VOLUME 73 FL (80-99); PLATELET COUNT 278 K/UL (150-450); RED BLOOD COUNT 4.25 M/UL (4.70-6.10); RED CELL DISTRIBUTION WIDTH 14.9 % (11.6-14.8)
[2019-03-18 12:59] LABS: ANION GAP 6 mmol/L (5-15); BLOOD UREA NITROGEN 29 mg/dL (7-18); CALCIUM 10.6 MG/DL (8.5-10.1); CARBON DIOXIDE 32 MMOL/L (21-32); CHLORIDE 92 MMOL/L (98-107); CREATININE 0.6 MG/DL (0.55-1.30); POTASSIUM 4.2 MMOL/L (3.5-5.1); SODIUM 130 MMOL/L (136-145)
[2019-03-18 13:05] LABS: % IRON SATURATION 19 % (15-50); CREATINE KINASE 861 U/L (26-308); GAMMA GLUTAMYL TRANSPEPTIDASE 87 U/L (5-85); IRON 52 ug/dL (50-175); PHOSPHORUS 3.9 MG/DL (2.5-4.9); TOTAL IRON BINDING CAPACITY 279 ug/dL (250-450)
[2019-03-18 13:14] LABS: ALANINE AMINOTRANSFERASE 112 U/L (12-78); ALBUMIN 2.2 G/DL (3.4-5.0); ALBUMIN/GLOBULIN RATIO 0.5 (1.0-2.7); ALKALINE PHOSPHATASE 860 U/L (46-116); ASPARTATE AMINO TRANSFERASE 817 U/L (15-37); BILIRUBIN,TOTAL 0.5 MG/DL (0.2-1.0); CHOLESTEROL 185 MG/DL (< 200); FERRITIN 1079 NG/ML (8-388); HDL CHOLESTEROL 30 MG/DL (40-60); TRIGLYCERIDES 112 MG/DL (30-150)
[2019-03-18 13:28] LABS: INR 1.2 (0.9-1.1)
--- NOTE | 2019-03-18 14:10 | NUR ---
NURSE NOTES: dr. Zhu saw pt, ordered thoracentesis, pt still on Bipap, continue monitoring.
--- NOTE | 2019-03-18 14:43 | NUR ---
RADIOLOGY DEPT., CHEST X-RAY POST THORA COMPLETED.-P.DYE
--- NOTE | 2019-03-18 15:08 | Diagnostic Imaging Report ---
Indication: Status post thoracentesis Comparison: None A single view chest radiograph was obtained. Findings: There is a moderate residual pleural effusion on the right. There is no pneumothorax. Ill-defined densities within the lungs consistent with pulmonary edema. Diffuse infiltrates less likely. Hiatal hernia is suspected. Cardiomegaly is present. IMPRESSION: No pneumothorax. Moderate residual right pleural effusion. Suspected pulmonary edema
--- NOTE | 2019-03-18 15:09 | Diagnostic Imaging Report ---
Indications: Pleural effusion Technique: Ultrasound used to localize optimal puncture site. Sterile prepping and draping of the lower chest performed. Local anesthesia with 1% lidocaine. Dermatotomy made. Puncture of the pleural space using thoracentesis needle. Stylet removed. Catheter placed to vacuum bottle suction. Fluid was aspirated. Patient tolerated procedure well, without immediate complication. The fluid grossly bloody and sent for cytology and other studies as requested. Findings: Followup sonography demonstrates moderate residual pleural fluid. The pleural fluid is loculated with multiple septations noted. Followup chest x-ray shows no pneumothorax. Impression: Successful ultrasound-guided right thoracentesis, yielding 1.7 liters of fluid
[2019-03-18 16:00] VITALS: BP 132/75
--- NOTE | 2019-03-18 17:11 | NUR ---
NURSE NOTES: thoracentesis done, 1700cc out, vital signs stable, continue monitoring.
--- NOTE | 2019-03-18 18:47 | History & Physical ---
History and Physical History & Physicial Dictated for Int Med-Dr Blank no. [id number]. Raulito Douglass MD March 18, 2019 18:47
--- NOTE | 2019-03-18 18:56 | NUR ---
HAND-OFF: Report given to TOBIAS CHEN,still on Bipap, no distress at this time.
--- NOTE | 2019-03-18 19:00 | NUR ---
NURSE NOTES: Report received from Rebekah Castillo RN. Patient seen in bed in semi bailey position with bipap on with setting of 15/5 at 90%. Sp02 is 97% at this time. Alert, verbally responsive, able to make needs known. Denies any pain at this time. IV site is to left wrist 22g, intact, and is running IVF of D5 NS with 20mEq KCL at 75cc/hr. Bed is in lowest position. Call light is within easy reach while in bed. will continue to monitor.
--- NOTE | 2019-03-18 19:22 | NUR ---
RESPIRATORY NOTE: Received pt. on BIPAP. BIPAP settings are: 15/5, PS 10, rate of 16, FI02 90%. No respiratory distress noted, pt. sP02 @ 99%. BIPAP plugged on red outlet. Will continue to monitor pt.
[2019-03-18 20:00] VITALS: BP 135/79
[2019-03-18] MEDS ORDERED: Tamsulosin 0.4mg cap ORAL SCH (21:00)
[2019-03-18] MEDS: Zolpidem 5mg tab ORAL PRN (23:45)
[2019-03-19] VITALS: BP 122/67
--- NOTE | 2019-03-19 01:15 | History and Physical Report ---
DATE OF ADMISSION: 03/18/2019 CHIEF COMPLAINT: The patient is a 73-year-old male, who presents with a chief complaint of abnormal chest x-ray. HISTORY OF PRESENT ILLNESS: The patient was admitted to [facility] from 03/06/2019 to 03/09/2019. The patient had a large right pleural effusion. The patient underwent thoracentesis of the right pleural effusion during that hospital stay. Pleural effusion revealed malignant cells consistent with metastatic lung cancer. The patient is a resident of [facility]. The patient apparently had a chest x-ray at [facility]. The patient was transported to [facility] for right-sided infiltrate. The patient is admitted with malignant right pleural effusion and right-sided infiltrate. REVIEW OF SYSTEMS: Unable to assess secondary to the patient's mental status. PAST MEDICAL HISTORY: Significant for, 1. Malignant pleural effusion of the right lung as above. 2. Hypertension. 3. Hepatitis C. 4. Coronary artery disease. 5. Major depression. 6. Temporomandibular joint syndrome. 7. History of alcohol dependence, in remission. PAST SURGICAL HISTORY: Significant for laparoscopic cholecystectomy in 2013. CURRENT MEDICATIONS: 1. Atenolol 25 mg one tablet p.o. daily. 2. Citalopram 30 mg p.o. daily. 3. Klonopin 0.5 mg p.o. twice daily p.r.n. 4. Daklinza 60 mg p.o. daily. 5. Iron sulfate 325 mg p.o. daily. 6. Folic acid 1 mg p.o. daily. 7. Lasix 40 mg p.o. daily. 8. Mirtazapine 15 mg p.o. at bedtime. 9. Omeprazole 40 mg p.o. daily. 10. Potassium gluconate 20 mg p.o. twice daily. 11. Sovaldi 400 mg p.o. daily. 12. Flomax 0.4 mg p.o. at bedtime. 13. Ambien 5 mg p.o. at bedtime p.r.n. ALLERGIES: No known drug allergies. SOCIAL HISTORY: The patient is single. 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 The patient denies tobacco use having quit in 1981. The patient denies alcohol use having quit in 2013. PHYSICAL EXAMINATION: VITAL SIGNS: Temperature 97.2, respirations 16, pulse 68, blood pressure 133/86, and pulse ox 97% on a non-rebreather. GENERAL: The patient is a well-developed and well-nourished male, who is in moderate respiratory distress. HEENT: Eyes, pupils are equal and responsive to light and accommodation. Extraocular movements are intact. NECK: Supple without lymphadenopathy. CHEST: Decreased breath sounds on the right. Left has coarse upper airway sounds without crackles. There are expiratory wheezes heard bilaterally. CARDIOVASCULAR: Regular rhythm and rate. S1 and S2 are normal without murmurs, rubs, or gallops. ABDOMEN: Soft, nontender, and nondistended. Positive bowel sounds. No evidence of hepatosplenomegaly. Currently, no rebound or guarding noted. EXTREMITIES: Negative for clubbing, cyanosis, or edema. RECTAL/GENITAL: Refused. NEUROLOGIC: Cranial nerves II through XII are grossly intact without focal deficits. Motor strength is 5/5 bilaterally. Deep tendon reflexes are 2+ plantar. LABORATORY STUDIES: WBC 21.1, hemoglobin 10.8, hematocrit 32.7, and platelets 261,000. Sodium 128, potassium 3.5, chloride 87, CO2 32, BUN 20, creatinine 0.7, and glucose 139. AST extremely elevated 1267, ALT elevated at 129, and alkaline phosphatase elevated at 987. Total CPK elevated at 1068. BNP elevated at 883. A chest x-ray was reported as complete opacification of the right hemithorax. ASSESSMENT: This is a 73-year-old male. 1. Respiratory failure. 2. Lung cancer. 3. Malignant right pleural effusion. 4. Hyponatremia. 5. Hypertension. 6. Hepatitis C. 7. Coronary artery disease. 8. Major depression. 9. Temporomandibular joint syndrome. 10. History of alcohol dependence, in remission. TREATMENT: 1. Respiratory failure. A Pulmonary consultation has been obtained with Dr. Kiran Zhu. The patient is currently on BiPAP in the [facility] unit. We will follow recommendation of Pulmonary. The patient has been started empirically on Zosyn and Levaquin. 2. Lung cancer/right pleural effusion. The patient refused treatment during the past hospitalization. 3. Hypertension. Continue metoprolol as above. 4. Hepatitis C. 5. Temporomandibular joint syndrome. 6. History of alcohol dependence, in remission. 7. Coronary artery disease. 8. Major depression. Continue citalopram as above. Raulito Douglass M.D. DR: KRISHNA JOB#: [id number] CC:
[2019-03-19 04:00] VITALS: BP 134/79
[2019-03-19 05:27] LABS: HEMATOCRIT 29.9 % (42.0-52.0); HEMOGLOBIN 9.8 G/DL (14.2-18.0); MEAN CORPUSCULAR VOLUME 73 FL (80-99); PLATELET COUNT 248 K/UL (150-450); RED BLOOD COUNT 4.07 M/UL (4.70-6.10); RED CELL DISTRIBUTION WIDTH 15.8 % (11.6-14.8); WHITE BLOOD COUNT 16.5 K/UL (4.8-10.8)
[2019-03-19 05:43] LABS: ANION GAP 7 mmol/L (5-15); BLOOD UREA NITROGEN 28 mg/dL (7-18); CALCIUM 10.4 MG/DL (8.5-10.1); CARBON DIOXIDE 32 MMOL/L (21-32); CHLORIDE 96 MMOL/L (98-107); CREATININE 0.6 MG/DL (0.55-1.30); POTASSIUM 4.3 MMOL/L (3.5-5.1); SODIUM 135 MMOL/L (136-145)
--- NOTE | 2019-03-19 07:21 | NUR ---
HAND-OFF: Report given to Ena Holder RN.
--- NOTE | 2019-03-19 07:25 | NUR ---
NURSE NOTES: Received bedside report from Sandy CHEN. Pt. in bed, awake, a/o x 3-4. On bipap continuous at 15/5 setting. Denies pain at present. IV at left wrist #22g. in placed patent/intact running D5NS with 20meq at 75cc/hr. Tolerating well. Bed in low position, locked. Call light within reach. Will cont. to monitor.
--- NOTE | 2019-03-19 07:45 | NUR ---
RESPIRATORY NOTE: received pt on bipap on current orders. partial facial mask used with foam tape in place to prevent skin tears. no visible redness or skin tears around face and neck area. bilateral clear-diminished b/s upon auscultation. slightly tachypneic but non labored. current spo2 95 on 100% fio2. will cont to monitor throughout the day.
[2019-03-19 08:00] VITALS: BP 134/73
[2019-03-19] MEDS: Aspirin Baby 81mg ORAL SCH (09:00)
[2019-03-19] MEDS: Tamsulosin 0.4mg cap ORAL SCH ×2 (09:00→18:00)
[2019-03-19] MEDS: Citalopram Hydrobromide 10mg Tab ORAL SCH (09:00)
[2019-03-19] MEDS: clonazePAM 0.5mg tab ORAL SCH ×2 (09:00→18:00)
--- NOTE | 2019-03-19 10:03 | Nephrology Progress Note ---
Assessment/Plan Problem List: (1) Hypercalcemia of malignancy (2) Metastatic lung carcinoma (3) Acute respiratory failure (4) Anemia of chronic disease Assessment HypoNatremia , Etiology?? Need further test results Acute respiratory failure on BiPAP Anemia, Low MCV Elevated LFTs and CK Hypercalcemia Plan Aredia 90 today Lasix one dose U os U Na spot S os Uric acid Anemia panel saline with prn lasix per orders Subjective ROS Limited/Unobtainable: No Constitutional: Reports: malaise, weakness Objective Objective Last 24 Hour Vital Signs Date Time Temp Pulse Resp B/P (MAP) Pulse Ox O2 Delivery O2 Flow Rate FiO2 03/19/19 09:21 88 32 91 Facial 100 03/19/19 08:00 90 03/19/19 08:00 98.0 99 30 134/73 (93) 96 03/19/19 07:44 94 28 Bi-pap 100 03/19/19 07:42 91 27 95 Facial 100 03/19/19 05:11 82 20 97 Facial 100 03/19/19 04:00 Bi-pap 03/19/19 04:00 97.5 94 29 134/79 (97) 93 03/19/19 04:00 90 03/19/19 03:33 97 03/19/19 03:05 97 27 93 Facial 100 03/19/19 01:14 90 20 93 Facial 90 03/19/19 00:00 93 03/19/19 00:00 97.0 81 23 122/67 (85) 97 03/19/19 00:00 Bi-pap 03/18/19 23:42 89 24 95 Facial 90 03/18/19 21:15 73 24 95 Facial 90 03/18/19 20:00 Bi-pap 03/18/19 20:00 90 03/18/19 20:00 97.7 80 26 135/79 (97) 97 03/18/19 19:52 83 03/18/19 19:20 72 18 99 Facial 90 03/18/19 17:56 87 28 92 Facial 90 03/18/19 16:00 70 03/18/19 16:00 97.9 69 18 132/75 (94) 97 03/18/19 16:00 Bi-pap 03/18/19 16:00 90 03/18/19 15:17 74 19 96 Facial 90 5/6/19 12:53 82 27 95 Facial 90 03/18/19 12:52 81 21 92 Facial 90 03/18/19 12:00 90 03/18/19 12:00 Bi-pap 03/18/19 12:00 97.2 68 16 133/86 (102) 95 03/18/19 12:00 72 Intake and Output 03/18/19 03/19/19 19:00 07:00 Intake Total 775 ml 825 ml Output Total 2250 ml 600 ml Balance -1475 ml 225 ml Intake Oral 250 ml IV Total 525 ml 825 ml Output Urine Total 550 ml 600 ml Other 1700 ml Laboratory Tests 03/18/19 12:30: White Blood Count 21.0H, Red Blood Count 4.25L, Hemoglobin 10.3L, Hematocrit 31.0L, Mean Corpuscular Volume 73L, Mean Corpuscular Hemoglobin 24.1L, Mean Corpuscular Hemoglobin Concent 33.1, Red Cell Distribution Width 14.9H, Platelet Count 278, Mean Platelet Volume 7.2, Neutrophils (%) (Auto) , Lymphocytes (%) (Auto) , Monocytes (%) (Auto) , Eosinophils (%) (Auto) , Basophils (%) (Auto) , Differential Total Cells Counted 100, Neutrophils % ( Manual) 91H, Lymphocytes % (Manual) 2L, Monocytes % (Manual) 5, Eosinophils % ( Manual) 0, Basophils % (Manual) 0, Band Neutrophils 2, Platelet Estimate Adequate, Platelet Morphology Normal, Hypochromasia 1+, Microcytosis 2+, Sodium Level 130L, Potassium Level 4.2, Chloride Level 92L, Carbon Dioxide Level 32, Anion Gap 6, Blood Urea Nitrogen 29H, Creatinine 0.6, Estimat Glomerular Filtration Rate , Glucose Level 142H, Osmolality 287L, Uric Acid 7.8H, Calcium Level 10.6H, Phosphorus Level 3.9, Magnesium Level 1.5L, Iron Level 52, Total Iron Binding Capacity 279, Percent Iron Saturation 19, Unsaturated Iron Binding 227, Ferritin 1079H, Total Bilirubin 0.5, Gamma Glutamyl Transpeptidase 87H, Aspartate Amino Transf (AST/SGOT) 817H, Alanine Aminotransferase (ALT/SGPT) 112H , Alkaline Phosphatase 860H, Total Creatine Kinase 861H, C-Reactive Protein, Quantitative 31.6H, Pro-B-Type Natriuretic Peptide 808H, Total Protein 7.0, Albumin 2.2L, Globulin 4.8, Albumin/Globulin Ratio 0.5L, Triglycerides Level 112 , Cholesterol Level 185, LDL Cholesterol 134H, HDL Cholesterol 30L, Cholesterol/ HDL Ratio 6.2H, Vitamin B12 Level > 2000H, Folate 31.2, Thyroid Stimulating Hormone (TSH) 1.410 03/18/19 12:55: Prothrombin Time 12.1H, Prothromb Time International Ratio 1.2H, Activated Partial Thromboplast Time 23 03/18/19 13:50: Urine Osmolality 727H, Urine Random Sodium < 20L 03/18/19 14:00: Body Fluid Source Pleural, Body Fluid Volume 24, Body Fluid Appearance Bloody, Body Fluid RBC 291530, Body Fluid Total Nucleated Cells 600, Body Fluid Polynuclear WBCs (%) 74, Body Fluid Mononuclear WBCs (%) 22, Body Fluid Mesothelial Cells (%) 4, Body Fluid Glucose [Pending], Body Fluid Total Protein [Pending], Body Fluid Albumin [Pending] 03/19/19 03:10: White Blood Count 16.5H, Red Blood Count 4.07L, Hemoglobin 9.8L, Hematocrit 29.9L, Mean Corpuscular Volume 73L, Mean Corpuscular Hemoglobin 24.1L, Mean Corpuscular Hemoglobin Concent 32.9, Red Cell Distribution Width 15.8H, Platelet Count 248, Mean Platelet Volume 6.7, Neutrophils (%) (Auto) , Lymphocytes (%) (Auto) , Monocytes (%) (Auto) , Eosinophils (%) (Auto) , Basophils (%) (Auto) , Differential Total Cells Counted 100, Neutrophils % ( Manual) 82H, Lymphocytes % (Manual) 6L, Monocytes % (Manual) 12H, Eosinophils % (Manual) 0, Basophils % (Manual) 0, Band Neutrophils 0, Nucleated Red Blood Cells 3, Platelet Estimate Adequate, Platelet Morphology Normal, Hypochromasia 2 +, Anisocytosis 1+, Microcytosis 2+, Sodium Level 135L, Potassium Level 4.3, Chloride Level 96L, Carbon Dioxide Level 32, Anion Gap 7, Blood Urea Nitrogen 28H, Creatinine 0.6, Estimat Glomerular Filtration Rate , Glucose Level 125H, Calcium Level 10.4H, Magnesium Level 1.6L Height (Feet): 5 Height (Inches): 6.00 Weight (Pounds): 154 General Appearance: moderate distress EENT: other - BIPAP Cardiovascular: tachycardia Respiratory/Chest: decreased breath sounds Abdomen: distended Zion Zuleta MD March 19, 2019 10:03
[2019-03-19] MEDS: Pantoprazole Inj IVP SCH (10:15)
[2019-03-19] MEDS ORDERED: Pamidronate Disodium Inj 90 MG in Sodium Chloride 550 ML IVPB SCH (11:00)
--- NOTE | 2019-03-19 11:39 | Pulmonolgy Critical Care Note ---
Critical Care - Asmt/Plan Problems: (1) Acute respiratory failure (2) Large pleural effusion (3) Metastatic lung carcinoma (4) Hepatitis C (5) Seizure disorder (6) Hypertension Respiratory: monitor respiratory rate, adjust FIO2, CXR, other - awaiting thoracic surgery evaluation Cardiac: continue to monitor HR/BP Renal: keep IV fluid Infectious Disease: check cultures Gastrointestinal: start feedings - ensure Endocrine: monitor blood sugar Hematologic: monitor H/H, transfuse if hgb<8.5 Neurologic: PRN Ativan, PRN Morphine, keep patient comfortable Time Spent (Minutes): 40 Discussed with: nurses, consultants, embedded case 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 talent acquisition - Objective Last 24 Hour Vital Signs Date Time Temp Pulse Resp B/P (MAP) Pulse Ox O2 Delivery O2 Flow Rate FiO2 03/19/19 10:32 95 32 92 Facial 100 03/19/19 09:21 88 32 91 Facial 100 03/19/19 08:00 10 03/19/19 08:00 90 03/19/19 08:00 Bi-pap 03/19/19 08:00 98.0 99 30 134/73 (93) 96 03/19/19 07:44 94 28 Bi-pap 100 03/19/19 07:42 91 27 95 Facial 100 03/19/19 05:11 82 20 97 Facial 100 03/19/19 04:00 Bi-pap 03/19/19 04:00 97.5 94 29 134/79 (97) 93 03/19/19 04:00 90 03/19/19 03:33 97 03/19/19 03:05 97 27 93 Facial 100 03/19/19 01:14 90 20 93 Facial 90 03/19/19 00:00 93 03/19/19 00:00 97.0 81 23 122/67 (85) 97 03/19/19 00:00 Bi-pap 03/18/19 23:42 89 24 95 Facial 90 03/18/19 21:15 73 24 95 Facial 90 03/18/19 20:00 Bi-pap 03/18/19 20:00 90 03/18/19 20:00 97.7 80 26 135/79 (97) 97 03/18/19 19:52 83 03/18/19 19:20 72 18 99 Facial 90 03/18/19 17:56 87 28 92 Facial 90 03/18/19 16:00 70 03/18/19 16:00 97.9 69 18 132/75 (94) 97 03/18/19 16:00 Bi-pap 03/18/19 16:00 90 03/18/19 15:17 74 19 96 Facial 90 03/18/19 12:53 82 27 95 Facial 90 03/18/19 12:52 81 21 92 Facial 90 03/18/19 12:00 90 03/18/19 12:00 Bi-pap 03/18/19 12:00 97.2 68 16 133/86 (102) 95 03/18/19 12:00 72 Status: awake Condition: critical, grave, improving HEENT: atraumatic Lungs: rales, rhonchi Heart: HR/BP stable Abdomen: soft, non-tender, active bowel sounds Extremities: no C/C/E, edema Decubiti: location Micro: Microbiology Date/Time Source Procedure Growth Status 03/18/19 14:00 Pleural Fluid Gram Stain - Final Resulted 03/18/19 14:00 Pleural Fluid Body Fluid Culture Pending Resulted Critical Care - Subjective ROS Limited/Unobtainable: Yes Interval Events: right chest was drained 1.7 liters. Pt still needs BIPAP Condition: critical FI02: 100 Vent Support Breath Rate: 16 Vent Support Mode: BiLevel Sputum Amount: None I&O: Intake and Output 03/18/19 03/19/19 19:00 07:00 Intake Total 775 ml 900 ml Output Total 2250 ml 600 ml Balance -1475 ml 300 ml Intake Oral 250 ml IV Total 525 ml 900 ml Output Urine Total 550 ml 600 ml Other 1700 ml CXR: pleural effusion decreased to half probably Labs: Laboratory Tests Test 03/18/19 12:30 03/18/19 12:55 03/18/19 13:50 03/18/19 14:00 White Blood Count 21.0 K/UL (4.8-10.8) H Red Blood Count 4.25 M/UL (4.70-6.10) L Hemoglobin 10.3 G/DL (14.2-18.0) L Hematocrit 31.0 % (42.0-52.0) L Mean Corpuscular Volume 73 FL (80-99) L Mean Corpuscular Hemoglobin 24.1 PG (27.0-31.0) L Mean Corpuscular Hemoglobin Concent 33.1 G/DL (32.0-36.0) Red Cell Distribution Width 14.9 % (11.6-14.8) H Platelet Count 278 K/UL (150-450) Mean Platelet Volume 7.2 FL (6.5-10.1) Neutrophils (%) (Auto) % (45.0-75.0) Lymphocytes (%) (Auto) % (20.0-45.0) Monocytes (%) (Auto) % (1.0-10.0) Eosinophils (%) (Auto) % (0.0-3.0) Basophils (%) (Auto) % (0.0-2.0) Differential Total Cells Counted 100 Neutrophils % (Manual) 91 % (45-75) H Lymphocytes % (Manual) 2 % (20-45) L Monocytes % (Manual) 5 % (1-10) Eosinophils % (Manual) 0 % (0-3) Basophils % (Manual) 0 % (0-2) Band Neutrophils 2 % (0-8) Platelet Estimate Adequate Platelet Morphology Normal Hypochromasia 1+ Microcytosis 2+ Sodium Level 130 MMOL/L (136-145) L Potassium Level 4.2 MMOL/L (3.5-5.1) Chloride Level 92 MMOL/L (98-107) L Carbon Dioxide Level 32 MMOL/L (21-32) Anion Gap 6 mmol/L (5-15) Blood Urea Nitrogen 29 mg/dL (7-18) H Creatinine 0.6 MG/DL (0.55-1.30) Estimat Glomerular Filtration Rate mL/min (>60) Glucose Level 142 MG/DL (74-106) H Osmolality 287 mOsm/kg (297-317) L Uric Acid 7.8 MG/DL (2.6-7.2) H Calcium Level 10.6 MG/DL (8.5-10.1) H Phosphorus Level 3.9 MG/DL (2.5-4.9) Magnesium Level 1.5 MG/DL (1.8-2.4) L Iron Level 52 ug/dL (50-175) Total Iron Binding Capacity 279 ug/dL (250-450) Percent Iron Saturation 19 % (15-50) Unsaturated Iron Binding 227 ug/dL (112-346) Ferritin 1079 NG/ML (8-388) H Total Bilirubin 0.5 MG/DL (0.2-1.0) Gamma Glutamyl Transpeptidase 87 U/L (5-85) H Aspartate Amino Transf (AST/SGOT) 817 U/L (15-37) H Alanine Aminotransferase (ALT/SGPT) 112 U/L (12-78) H Alkaline Phosphatase 860 U/L (46-116) H Total Creatine Kinase 861 U/L (26-308) H C-Reactive Protein, Quantitative 31.6 mg/dL (0.00-0.90) H Pro-B-Type Natriuretic Peptide 808 pg/mL (0-125) H Total Protein 7.0 G/DL (6.4-8.2) Albumin 2.2 G/DL (3.4-5.0) L Globulin 4.8 g/dL Albumin/Globulin Ratio 0.5 (1.0-2.7) L Triglycerides Level 112 MG/DL (30-150) Cholesterol Level 185 MG/DL (< 200) LDL Cholesterol 134 mg/dL (<100) H HDL Cholesterol 30 MG/DL (40-60) L Cholesterol/HDL Ratio 6.2 (3.3-4.4) H Vitamin B12 Level > 2000 PG/ML (193-986) H Folate 31.2 NG/ML (8.6-58.9) Thyroid Stimulating Hormone (TSH) 1.410 uiU/mL (0.358-3.740) Prothrombin Time 12.1 SEC (9.30-11.50) H Prothromb Time International Ratio 1.2 (0.9-1.1) H Activated Partial Thromboplast Time 23 SEC (23-33) Urine Osmolality 727 mOsm/kg (429-449) H Urine Random Sodium < 20 mmol/L (20-110) L Body Fluid Source Pleural Body Fluid Volume 24 mL Body Fluid Appearance Bloody (Clear) Body Fluid RBC 880370 /CUMM Body Fluid Total Nucleated Cells 600 /CUMM Body Fluid Polynuclear WBCs (%) 74 % Body Fluid Mononuclear WBCs (%) 22 % Body Fluid Mesothelial Cells (%) 4 % Body Fluid Glucose 39 mg/dL (.) Body Fluid Total Protein 4.9 g/dL (.) Body Fluid Albumin Pending Test 03/19/19 03:10 White Blood Count 16.5 K/UL (4.8-10.8) H Red Blood Count 4.07 M/UL (4.70-6.10) L Hemoglobin 9.8 G/DL (14.2-18.0) L Hematocrit 29.9 % (42.0-52.0) L Mean Corpuscular Volume 73 FL (80-99) L Mean Corpuscular Hemoglobin 24.1 PG (27.0-31.0) L Mean Corpuscular Hemoglobin Concent 32.9 G/DL (32.0-36.0) Red Cell Distribution Width 15.8 % (11.6-14.8) H Platelet Count 248 K/UL (150-450) Mean Platelet Volume 6.7 FL (6.5-10.1) Neutrophils (%) (Auto) % (45.0-75.0) Lymphocytes (%) (Auto) % (20.0-45.0) Monocytes (%) (Auto) % (1.0-10.0) Eosinophils (%) (Auto) % (0.0-3.0) Basophils (%) (Auto) % (0.0-2.0) Differential Total Cells Counted 100 Neutrophils % (Manual) 82 % (45-75) H Lymphocytes % (Manual) 6 % (20-45) L Monocytes % (Manual) 12 % (1-10) H Eosinophils % (Manual) 0 % (0-3) Basophils % (Manual) 0 % (0-2) Band Neutrophils 0 % (0-8) Nucleated Red Blood Cells 3 /100 WBC Platelet Estimate Adequate Platelet Morphology Normal Hypochromasia 2+ Anisocytosis 1+ Microcytosis 2+ Sodium Level 135 MMOL/L (136-145) L Potassium Level 4.3 MMOL/L (3.5-5.1) Chloride Level 96 MMOL/L (98-107) L Carbon Dioxide Level 32 MMOL/L (21-32) Anion Gap 7 mmol/L (5-15) Blood Urea Nitrogen 28 mg/dL (7-18) H Creatinine 0.6 MG/DL (0.55-1.30) Estimat Glomerular Filtration Rate mL/min (>60) Glucose Level 125 MG/DL (74-106) H Calcium Level 10.4 MG/DL (8.5-10.1) H Magnesium Level 1.6 MG/DL (1.8-2.4) L Zarrabi,Mirali MD March 19, 2019 11:38
[2019-03-19 12:00] VITALS: BP 110/73
[2019-03-19] MEDS ORDERED: Allopurinol 100mg Tab ORAL SCH (12:40)
[2019-03-19 16:00] VITALS: BP 113/59
--- NOTE | 2019-03-19 18:35 | Internal Med Progress Note ---
Subjective Date of Service: March 19, 2019 Physician Name Raulito Douglass Attending Physician Arturo Blank MD Current Medications Medications (Trade) Dose Ordered Sig/Richard Route PRN Reason Start Time Stop Time Status Last Admin Dose Admin Acetaminophen (Tylenol) 650 mg Q4H PRN ORAL Mild Pain/Temp > 100.5 03/18/19 04:30 04/17/19 04:29 03/18/19 23:46 Allopurinol (Zyloprim) 100 mg DAILY ORAL 03/20/19 09:00 04/19/19 08:59 Atenolol (Tenormin) 50 mg DAILY ORAL 03/18/19 09:00 04/17/19 08:59 03/18/19 09:22 Chlorthalidone (Chlorthalidone) 25 mg DAILY ORAL 03/18/19 09:00 04/17/19 08:59 03/18/19 09:21 Citalopram Hydrobromide (celeXA) 30 mg DAILY ORAL 03/18/19 09:00 04/17/19 08:59 03/18/19 09:22 Clonazepam (KlonoPIN) 0.5 mg BID ORAL 03/18/19 09:00 03/25/19 08:59 03/18/19 17:38 Dextrose/ Electrolytes 1,000 ml @ 75 mls/hr [id number] IV 03/18/19 12:00 04/17/19 11:59 03/19/19 16:21 Pantoprazole (Protonix) 40 mg DAILY IVP 03/18/19 09:00 04/17/19 08:59 03/19/19 10:15 Tamsulosin HCl (Flomax) 0.4 mg BID ORAL 03/18/19 11:00 04/17/19 20:59 03/18/19 17:38 Zolpidem Tartrate (Ambien) 5 mg HSPRN PRN ORAL Insomnia 03/18/19 04:30 03/25/19 04:29 03/18/19 23:45 Allergies: Coded Allergies: No Known Allergies (Unverified , 02/16/13) ROS Limited/Unobtainable: Yes Subjective 73 YO M with right lung cancer and malignant pleural effusion admitted with shortness of breath. Now respiratory failure. Cover for Int Med-Dr Blank. SAHKIRA Objective Last Vital Signs Date Time Temp Pulse Resp B/P (MAP) Pulse Ox O2 Delivery O2 Flow Rate FiO2 03/19/19 16:56 122 35 91 Full Face 100 03/19/19 16:00 99.1 113/59 (77) 03/17/19 21:40 15.0 Laboratory Tests Test 03/19/19 03:10 White Blood Count 16.5 K/UL (4.8-10.8) H Red Blood Count 4.07 M/UL (4.70-6.10) L Hemoglobin 9.8 G/DL (14.2-18.0) L Hematocrit 29.9 % (42.0-52.0) L Mean Corpuscular Volume 73 FL (80-99) L Mean Corpuscular Hemoglobin 24.1 PG (27.0-31.0) L Mean Corpuscular Hemoglobin Concent 32.9 G/DL (32.0-36.0) Red Cell Distribution Width 15.8 % (11.6-14.8) H Platelet Count 248 K/UL (150-450) Mean Platelet Volume 6.7 FL (6.5-10.1) Neutrophils (%) (Auto) % (45.0-75.0) Lymphocytes (%) (Auto) % (20.0-45.0) Monocytes (%) (Auto) % (1.0-10.0) Eosinophils (%) (Auto) % (0.0-3.0) Basophils (%) (Auto) % (0.0-2.0) Differential Total Cells Counted 100 Neutrophils % (Manual) 82 % (45-75) H Lymphocytes % (Manual) 6 % (20-45) L Monocytes % (Manual) 12 % (1-10) H Eosinophils % (Manual) 0 % (0-3) Basophils % (Manual) 0 % (0-2) Band Neutrophils 0 % (0-8) Nucleated Red Blood Cells 3 /100 WBC Platelet Estimate Adequate Platelet Morphology Normal Hypochromasia 2+ Anisocytosis 1+ Microcytosis 2+ Sodium Level 135 MMOL/L (136-145) L Potassium Level 4.3 MMOL/L (3.5-5.1) Chloride Level 96 MMOL/L (98-107) L Carbon Dioxide Level 32 MMOL/L (21-32) Anion Gap 7 mmol/L (5-15) Blood Urea Nitrogen 28 mg/dL (7-18) H Creatinine 0.6 MG/DL (0.55-1.30) Estimat Glomerular Filtration Rate mL/min (>60) Glucose Level 125 MG/DL (74-106) H Calcium Level 10.4 MG/DL (8.5-10.1) H Magnesium Level 1.6 MG/DL (1.8-2.4) L Microbiology Date/Time Source Procedure Growth Status 03/18/19 14:00 Pleural Fluid Gram Stain - Final Resulted 03/18/19 14:00 Pleural Fluid Body Fluid Culture - Preliminary NO GROWTH Resulted Intake and Output 03/18/19 03/19/19 19:00 07:00 Intake Total 775 ml 900 ml Output Total 2250 ml 600 ml Balance -1475 ml 300 ml Intake Oral 250 ml IV Total 525 ml 900 ml Output Urine Total 550 ml 600 ml Other 1700 ml Objective PHYSICAL EXAMINATION: GENERAL: The patient is a well-developed and well-nourished male, who is in moderate respiratory distress. HEENT: Eyes, pupils are equal and responsive to light and accommodation. Extraocular movements are intact. NECK: Supple without lymphadenopathy. CHEST: Full Face BIPAP; Decreased breath sounds on the right. Left has coarse upper airway sounds without crackles. There are expiratory wheezes heard bilaterally. CARDIOVASCULAR: Regular rhythm and rate. S1 and S2 are normal without murmurs, rubs, or gallops. ABDOMEN: Soft, nontender, and nondistended. Positive bowel sounds. No evidence of hepatosplenomegaly. Currently, no rebound or guarding noted. EXTREMITIES: Negative for clubbing, cyanosis, or edema. RECTAL/GENITAL: Refused. NEUROLOGIC: Cranial nerves II through XII are grossly intact without focal deficits. Motor strength is 5/5 bilaterally. Deep tendon reflexes are 2+ plantar. Assessment/Plan Assessment/Plan ASSESSMENT: This is a 73-year-old male. 1. Respiratory failure. 2. Lung cancer. 3. Malignant right pleural effusion. 4. Hyponatremia. 5. Hypertension. 6. Hepatitis C. 7. Coronary artery disease. 8. Major depression. 9. Temporomandibular joint syndrome. 10. History of alcohol dependence, in remission. TREATMENT: 1. Respiratory failure. A Pulmonary consultation has been obtained with Dr. Kiran Zhu. The patient is currently on full face BiPAP in the [facility] unit. We will follow recommendation of Pulmonary. The patient has been started empirically on Zosyn and Levaquin. 2. Lung cancer/right pleural effusion. The patient refused treatment during the past hospitalization. 3. Hypertension. Continue metoprolol as above. 4. Hepatitis C. 5. Temporomandibular joint syndrome. 6. History of alcohol dependence, in remission. 7. Coronary artery disease. 8. Major depression. Continue citalopram as above. Raulito Douglass MD March 19, 2019 18:35
--- NOTE | 2019-03-19 18:45 | NUR ---
NURSE NOTES: PATIENT SEEN PULLING OFF THE BIPAP MASK. WILL CONTINUE TO MONITOR.
--- NOTE | 2019-03-19 18:53 | NUR ---
NURSE NOTES: Informed Dr. Zhu regarding HR 110-140. Awaiting for response.
--- NOTE | 2019-03-19 19:25 | NUR ---
HAND-OFF: Report given to raul Ordoñez RN.
--- NOTE | 2019-03-19 19:25 | NUR ---
HAND-OFF: Report given to Nimco CHEN. Pt. remain tachy. Awaiting for Dr. Audra noel.
--- NOTE | 2019-03-19 19:26 | NUR ---
NURSE NOTES: Received bedside report from EnaRN/JyotiRN.Patient stable,in a bed,ST on satellite project site monitor, aware,BiPAP continuously 15/5 SatO2 92%,BS active in all quadrants,IV asymptomatic,intact on R f/arm 22G running with D 5 1/2 NS with 2o mEq K @75 ml/hr,bed secured,call light within a reach,will continue to monitor.
--- NOTE | 2019-03-19 19:40 | NUR ---
NURSE NOTES: Received TO order from for Metoprolol BID 10mg IV ,d/t pt's HR 145 bpm
--- NOTE | 2019-03-19 19:50 | NUR ---
NURSE NOTES: Pt.Sat O2 dropped down to 83%, aware and he suggested to put order on hold for Metoprolol d/t patient's condition.We moved pt closed to the station room for continuously supervision.Charge nurse aware
[2019-03-19 20:00] VITALS: BP 127/80
--- NOTE | 2019-03-19 20:14 | NUR ---
NURSE NOTES: Patient stable,HR is 127,Sat O2 94%.Will continue to monitor him
--- NOTE | 2019-03-19 20:30 | Consultation ---
DATE OF CONSULTATION: 03/19/2019 SURGEON: El Lopez M.D., specialty in Thoracic Surgery. REFERRING PHYSICIAN: Kiran Zhu M.D. HISTORY OF PRESENT ILLNESS: The patient is a 73-year-old male, status post right thoracentesis for a recurrent malignant pleural effusion. Pathology was consistent of metastatic lung cancer and thoracic surgeon is now consulted for further evaluation. PAST MEDICAL HISTORY: Notable for: 1. Hypertension. 2. Hepatitis C. 3. Major depression. 4. Temporomandibular joint syndrome. 5. Stage IV lung cancer. PAST SURGICAL HISTORY: Notable for: 1. Laparoscopic cholecystectomy in 2013. 2. Right-sided thoracentesis in the last 2 months. MEDICATIONS: Reviewed. ALLERGIES: The patient has no known drug allergies. FAMILY AND SOCIAL HISTORY: The patient had a 35 years of smoking history and quit in 2013. He also had a history of alcohol abuse in the past. The patient currently lives in a [place] [facility]. PHYSICAL EXAMINATION: VITAL SIGNS: He is noted to be afebrile. His vitals remained within normal limits. CARDIAC: Regular rate and rhythm. No gallops or murmur. RESPIRATORY: Clear to auscultation on the left with decreased crackles on the right. ABDOMEN: Soft, nondistended, nontender with normoactive bowel sounds. EXTREMITIES: No evidence of cyanosis, clubbing, or edema. LABORATORY STUDY: Performed on 03/19/2019 show a white count of 16.5, hemoglobin 9.8, hematocrit of 30, and a platelet count of 248,000. Sodium is 135, potassium is 4.3, chloride is 96, CO2 is 32, BUN is 28, creatinine is 0.6, and glucose is 125. ASSESSMENT AND PLAN: This is a 73-year-old male with right stage IV lung cancer and recurrent malignant pleural effusion. The patient was evaluated at bedside. After reviewing his clinical database, I recommend he undergo a right PleurX catheter placement for decompression. I want to thank you for referring this patient to my attention. If there are any questions in regard to this patient's clinical care, please do not hesitate to contact me. Day M.D. DR: FAVIOLA JOB#: [id number] CC: MARIA D
--- NOTE | 2019-03-19 22:00 | NUR ---
NURSE NOTES: Patient continue to take off bipap and desat. to 84%.Provide instructions to keep bipap on and safe energy to keep Sat O2 above 95%.Will continue to monitor.
[2019-03-19] MEDS: Zolpidem 5mg tab ORAL PRN (23:18)
[2019-03-20] VITALS: BP 120/72
--- NOTE | 2019-03-20 02:30 | NUR ---
NURSE NOTES: Pt has respiratory distress,Sat O2 89%,anxious,and removing BiPAP all the time,pt under continuous supervision.
[2019-03-20 04:00] VITALS: BP 123/77
[2019-03-20 05:36] LABS: HEMATOCRIT 28.9 % (42.0-52.0); HEMOGLOBIN 9.2 G/DL (14.2-18.0); MEAN CORPUSCULAR VOLUME 75 FL (80-99); PLATELET COUNT 237 K/UL (150-450); RED BLOOD COUNT 3.85 M/UL (4.70-6.10); RED CELL DISTRIBUTION WIDTH 16.3 % (11.6-14.8); WHITE BLOOD COUNT 20.1 K/UL (4.8-10.8)
[2019-03-20 06:04] LABS: ALANINE AMINOTRANSFERASE 106 U/L (12-78); ALBUMIN/GLOBULIN RATIO 0.4 (1.0-2.7); ALKALINE PHOSPHATASE 723 U/L (46-116); ANION GAP 13 mmol/L (5-15); ASPARTATE AMINO TRANSFERASE 594 U/L (15-37); BILIRUBIN,TOTAL 0.8 MG/DL (0.2-1.0); BLOOD UREA NITROGEN 29 mg/dL (7-18); CALCIUM 11.2 MG/DL (8.5-10.1); CARBON DIOXIDE 28 MMOL/L (21-32); CHLORIDE 99 MMOL/L (98-107); CREATININE 0.9 MG/DL (0.55-1.30); POTASSIUM 3.7 MMOL/L (3.5-5.1); SODIUM 140 MMOL/L (136-145)
--- NOTE | 2019-03-20 07:16 | NUR ---
HAND-OFF: Report given to GUSTAVO Stoll.Patient stable,Sat O2 89%. Addendum: 03/20/19 at 0741 by Nimco Ordoñez RN Disregard this note
[2019-03-20 07:30] VITALS: BP 0/0
--- NOTE | 2019-03-20 07:30 | NUR ---
HAND-OFF: Report given to GUSTAVO Stoll.Patient removed Bipap,HR 32,Sat O2 45%,patient declining.
--- NOTE | 2019-03-20 07:30 | NUR ---
NURSE NOTES:DURING RECEIVING BED SIDE REPORT FROM SHERRIE CHEN OF NOC SHIFT PT STOOP BREADING ,NO B/P.PT IS DNR ,DNI STATUS,AME RN IN CHARGE CAME TO SEE THE THE PT.PT PUPILS DILATED .NO B/P NOTED.PLACED A TELEPHONE CALL TO DR IGLESIAS.Sea AND MADE AWARE AND NOTIFIED THAT PT STOOPED BREATHING ,HR 33 NOTED ON [place] BUT UNABLETO PALPATE PULSES.
[2019-03-20] MEDS ORDERED: D5NS 1000ml IV ONE (07:35)
[2019-03-20] MEDS ORDERED: NS 275ml ONE (07:35)
[2019-03-20] MEDS ORDERED: Tubing IV Secondary IV ONE (07:35)
--- NOTE | 2019-03-20 07:39 | NUR ---
PRONOUNCEMENT: No Code. Called to pronounce patient. Absence of spontaneous respirations, no cardiac or breath sounds on auscultation. Pupils fixed and dilated. No carotid pulse or chest movement. Patient at 0739. DR Blank notified PER Horacio. Family was notified at [phone] charles galicia.
--- NOTE | 2019-03-20 07:40 | NUR ---
RESPIRATORY NOTE:Pt was pronounced at 0739 by charge nurse. No signs of breathing. Unable to palpate pulse.
--- NOTE | 2019-03-20 08:46 | NUR ---
PRONOUNCEMENT: No Code. Called to pronounce patient. Absence of spontaneous respirations, no cardiac or breath sounds on auscultation. Pupils fixed and dilated. No carotid pulse or chest movement. Patient at [address] [email or web address] notified PER GUSTAVO MAYNARD. Family was notified at 0800 AM TO [facility]OM[facility] BROWNE BY KARYN MCCLOUD RN ALSO Nelson IGLESIAS .P NOTIFIED PT FAMILY .
[2019-03-20] MEDS ORDERED: Allopurinol 100mg Tab ORAL SCH (09:00)
--- NOTE | 2019-03-21 12:15 | Discharge Summary ---
Discharge Summary Discharge Summary _ DATE OF ADMISSION: 03/17/2019 DATE OF DISCHARGE: 03/20/2019 BRIEF SUMMARY: Patient is an unfortunate 73-year-old male, who presented with chief complaint of abnormal chest x-ray. The patient was admitted to [facility] from 03/06/2019 -03/09/2019. The patient had a large right pleural effusion. He then underwent thoracentesis of the right pleural effusion during that hospital stay. Pleural effusion revealed malignant cells consistent with metastatic lung CA. Patient was discharged to [facility] senior care facility. The patient apparently had a chest x-ray at [facility]. The patient was transported to [facility] due to right-sided infiltrate. 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 He was DNR. Per EMS report, patient was saturating 80% on nasal cannula. He was placed on nonrebreather mask. On arrival to ED, he was placed on BiPAP. He was given nebulizer treatment. Blood work showed leukocytosis, WBC was elevated to 21. Hemoglobin was 10.8, hematocrit 32. Sodium was low at 128, potassium 3.5, chloride 87. Lactic acid was elevated to 2.3. Calcium 11. Troponin was elevated to 0.0 63. Patient requested to take off BiPAP. He was given trial of nonrebreather. CO2 was still elevated. He had a chest x-ray done that showed complete opacification of the right hemithorax. He was given aspirin. He was given morphine for abdominal pain. He was then admitted for respiratory failure with right pleural effusion, metastatic lung carcinoma and leukocytosis. He was continued on BiPAP support. He was given nebulizer treatment. He was started empirically on Zosyn and Levaquin. Patient had a right pleural effusion and refused treatment during past hospitalization. He was continued on home medications. He underwent ultrasound-guided right thoracentesis yielding 1.7 L of fluid. Chest x-ray post did not show any pneumothorax. There was moderate residual right pleural effusion. Patient had a hyponatremia and hypercalcemia. He was given Lasix dose spot. He was given pamidronate. He was given allopurinol for elevated uric acid. He was seen by cardio thoracic surgeon. He was scheduled for right Pleurx catheter placement for decompression. Pleural fluid thoracentesis showed malignant cells. Culture did not isolate any growth. Patient continued to desaturate even while on BiPAP. Patient was occasionally taking off BiPAP mask. Patient continued to deteriorate. Patient was tachycardic then caprice down. Patient was no code. He eventually . FINAL DIAGNOSES: Cardiorespiratory arrest Acute respiratory failure Recurrent malignant right pleural effusion that is post right thoracentesis Right stage IV lung CA Hyponatremia Hypertension Hepatitis C Coronary artery disease Major depression TMJ syndrome History of alcohol dependence, in remission Anemia of chronic disease Hypercalcemia of malignancy DISPOSITION: Patient . I have been assigned to complete a discharge summary on this account, I was not involved with the patient's management. Shira Montes NP March 21, 2019 12:15
== END 2019-03-20 07:36 | disposition expired | DRG 189 ==
LOC: EDBD 18:56 → EMR 19:19 → 2W 19:21 → EDBEDREQ 19:59 → 2W 03-19 20:14
PROC: 5A09457 Assistance with Respiratory Ventilation, 24-96 Consecutive Hours, Continuous Positive Airway Pressure (ICD-10-PCS; principal; 2019-03-17)
PROC: 0W993ZZ Drainage of Right Pleural Cavity, Percutaneous Approach (ICD-10-PCS; 2019-03-18)
DX: J96.00 Acute respiratory failure, unspecified whether with hypoxia or hypercapnia (principal); E87.1 Hypo-osmolality and hyponatremia; C34.91 Malignant neoplasm of unspecified part of right bronchus or lung; J91.0 Malignant pleural effusion; C78.2 Secondary malignant neoplasm of pleura; Z51.5 Encounter for palliative care; Z66 Do not resuscitate; B19.20 Unspecified viral hepatitis C without hepatic coma; Z87.891 Personal history of nicotine dependence; F10.21 Alcohol dependence, in remission; I25.10 Atherosclerotic heart disease of native coronary artery without angina pectoris; F32.9 Major depressive disorder, single episode, unspecified; M26.629 Arthralgia of temporomandibular joint, unspecified side; E83.52 Hypercalcemia; I10 Essential (primary) hypertension
CPT/HCPCS: 36415; 36600; 71045; 76942; 80048; 80053; 80061; 81003; 82550; 82607; 82728; 82746; 82803; 82977; 83540; 83550; 83605; 83690; 83735; 83880; 83930; 83935; 84100; 84300; 84443; 84484; 84550; 85007; 85025; 85610; 85730; 86140; 86850; 86900; 86901; 86920; 87040; 87070; 87081; 87205; 88104; 89051; 93005; 94640; 94660; 94664; 96365; 96368; 96375; 96376; 99291; J2405; J2430; J8499